=== PATIENT | female | born 1960 | race Caucasian/White ===

== ENCOUNTER 2017-08-16 06:54 | Day surgery (SDC) | payer OTHER ==
[2017-08-16] VITALS (11 sets, daily range): BP systolic 113–132; BP diastolic 58–75
[~2017-08-16] VITALS: Ht 160 cm; Wt 56.7 kg
[~2017-08-16 06:54] MED LIST: HYDR1TAB PO; LISI20TA PO; NAPR1TAB21 PO; OMG1KC PO; ONDN4T PO; SIMV40TA4 PO
[2017-08-16 07:50] LABS: MEAN PLATELET VOLUME 9.1 FL (7.4-10.4); RED BLOOD COUNT 4.22 10^6/uL (4.35-5.85); RED CELL DISTRIBUTION WIDTH 13.8 % (10.0-14.5); WHITE BLOOD COUNT 8.1 10^3/uL (4.3-11.0)
[2017-08-16] MEDS ORDERED: LIDOCAINE 1% INJ 20 ML (XYLOCAINE) VIAL INJ ONE (08:00)
[2017-08-16 08:02] LABS: INR 1.2 (0.8-1.4); PROTHROMBIN TIME PATIENT 15.2 SEC (12.2-14.7)
[2017-08-16] MEDS ORDERED: fentaNYL INJECTION 100 MCG/2 ML AMP ONE (08:11)
[2017-08-16] MEDS ORDERED: LIDOCAINE 1% INJ 50 ML (XYLOCAINE) VIAL ONE (08:11)
[2017-08-16] MEDS ORDERED: HYDROcodone/APAP 5 MG/325 MG (LORTAB) TAB PO PRN (09:15)
--- NOTE | 2017-08-16 09:16 | Pre-Procedure Progress Note ---
Pre-Procedure Progress Note H&P Reviewed The H&P was reviewed, patient examined and no changes noted. Date H&P Reviewed: Aug 16, 2017 Time H&P Reviewed: 08:30 Pre-Procedure Diagnosis: right lung nodule MYCHAL LA MD Aug 16, 2017 09:16
[2017-08-16] MEDS ORDERED: fentaNYL INJECTION 100 MCG/2 ML AMP IVP NR (09:34)
--- OUTSIDE RECORDS SUMMARY | 2017-08-16 10:28 | XMS REPORT | Continuity of Care Document ---
Author Author [facility] Organization [facility] Address Unknown Phone Unavailable Allergies Active Description Code Type Severity Reaction Onset Reported/Identified Relationship to Patient Clinical Status Yes No Known Drug Allergies [id number] Drug Allergy Unknown N/A 07/22/2012 Medications There is no data. Problems Date Dx Coded Attending Type Code Diagnosis Diagnosed By 07/25/2012 Ot 574.10 CHOLELITH W CHOLECYS NEC 06/03/2015 Ot 793.81 06/03/2015 Ot 729.5 06/03/2015 Ot 729.81 08/08/2017 Ot 574.20 CHOLELITHIASIS NOS 08/08/2017 Ot 789.00 ABDOMINAL PAIN, UNSPECIFIED SITE 08/08/2017 Ot 789.1 HEPATOMEGALY 08/08/2017 Ot 401.9 HYPERTENSION NOS 08/08/2017 Ot 574.20 CHOLELITHIASIS NOS 08/08/2017 Ot 786.2 COUGH 08/08/2017 Ot V72.63 PRE- PROCEDURAL LABORATORY EXAMINATION 08/08/2017 Ot V72.81 EXAM-PRE- OPERATIVE CARDIOVASCULAR 08/08/2017 Ot V72.83 EXAM PRE- OPERATIVE NEC 08/08/2017 Ot V74.8 SCREEN- BACTERIAL DIS NEC 08/08/2017 MAXIMUS VILLAVICENCIO Ot V76.12 OTH SCREEN MAMMO-MALIGN NEOPLASM OF MAT 08/10/2017 Ot 574.20 CHOLELITHIASIS NOS 08/10/2017 Ot 789.00 ABDOMINAL PAIN, UNSPECIFIED SITE 08/10/2017 Ot 789.1 HEPATOMEGALY 08/10/2017 Ot 401.9 HYPERTENSION NOS 08/10/2017 Ot 574.20 CHOLELITHIASIS NOS 08/10/2017 Ot 786.2 COUGH 08/10/2017 Ot V72.63 PRE- PROCEDURAL LABORATORY EXAMINATION 08/10/2017 Ot V72.81 EXAM-PRE- OPERATIVE CARDIOVASCULAR 08/10/2017 Ot V72.83 EXAM PRE- OPERATIVE NEC 08/10/2017 Ot V74.8 SCREEN- BACTERIAL DIS NEC 08/10/2017 VILLAVICENCIO, MAXIMUS M 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 [employer]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 Ot V76.12 OTH SCREEN MAMMO-MALIGN NEOPLASM OF AMT 08/15/2017 TAMIR FATIMA MD Ot C50.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 08/15/2017 TAMIR FATIMA MD Ot C64.2 MALIGNANT NEOPLASM OF LEFT KIDNEY, EXCEP 08/15/2017 TAMIR FATIMA MD Ot C77.3 SEC AND UNSP MALIG NEOPLASM OF AXILLA AN 08/15/2017 TAMIR FATIMA MD Ot E04.1 NONTOXIC SINGLE THYROID NODULE 08/15/2017 TAMIR FATIMA MD Ot F17.210 NICOTINE DEPENDENCE, CIGARETTES, UNCOMPL 08/15/2017 TAMIR FATIMA MD Ot N83.201 UNSPECIFIED OVARIAN CYST, RIGHT SIDE 08/15/2017 TAMIR FATIMA MD Ot R91.8 OTHER NONSPECIFIC ABNORMAL FINDING OF SHAKILA 08/15/2017 TAMIR FATIMA MD Ot Z17.0 ESTROGEN RECEPTOR POSITIVE STATUS [ER+] 08/15/2017 TAMIR FATIMA MD, Ot Z79.899 OTHER IMAGERY ANALYST (CURRENT) DRUG THERAPY 08/15/2017 Ot 574.20 CHOLELITHIASIS NOS 08/15/2017 Ot 789.00 ABDOMINAL PAIN, UNSPECIFIED SITE 08/15/2017 Ot 789.1 HEPATOMEGALY 08/15/2017 Ot 401.9 HYPERTENSION NOS 08/15/2017 Ot 574.20 CHOLELITHIASIS NOS 08/15/2017 Ot 786.2 COUGH 08/15/2017 Ot V72.63 PRE- PROCEDURAL LABORATORY EXAMINATION 08/15/2017 Ot V72.81 EXAM-PRE- OPERATIVE CARDIOVASCULAR 08/15/2017 Ot V72.83 EXAM PRE- OPERATIVE NEC 08/15/2017 Ot V74.8 SCREEN- BACTERIAL DIS NEC 08/15/2017 VILLAVICENCIOMAXIMUS M POWER [employer] PLANT OPERATOR Ot V76.12 OTH SCREEN MAMMO-MALIGN NEOPLASM OF MAT 08/15/2017 TAMIR FATIMA MD Ot C50.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 08/15/2017 TAMIR FATIMA MD Ot C64.2 MALIGNANT NEOPLASM OF LEFT KIDNEY, EXCEP 08/15/2017 TAMIR FATIMA MD Ot C77.3 SEC AND UNSP MALIG NEOPLASM OF AXILLA AN 08/15/2017 TAMIR FATIMA MD Ot E04.1 NONTOXIC SINGLE THYROID NODULE 08/15/2017 TAMIR FATIMA MD, Ot F17.210 NICOTINE DEPENDENCE, CIGARETTES, UNCOMPL 08/15/2017 TAMIR FATIMA MD, Ot N83.201 UNSPECIFIED OVARIAN CYST, RIGHT SIDE 08/15/2017 TAMIR FATIMA MD, Ot R91.8 OTHER NONSPECIFIC ABNORMAL FINDING OF SHAKILA 08/15/2017 TAMIR FATIMA MD, Ot Z17.0 ESTROGEN RECEPTOR POSITIVE STATUS [ER+] 08/15/2017 TAMIR FATIMA MD, Ot Z79.899 OTHER PENITENTIARY (CURRENT) DRUG THERAPY Procedures There is no data. Results Test Result Range Automated blood complete blood count (hemogram) panel - 08/16/17 07:45 Blood leukocytes automated count (number/volume) 8.1 10*3/uL 4.3-11.0 Blood erythrocytes automated count (number/volume) 4.22 10*6/uL 4.35-5.85 Venous blood hemoglobin measurement (mass/volume) 11.1 g/dL 11.5-16.0 Blood hematocrit (volume fraction) 35 % 35-52 Automated erythrocyte mean corpuscular volume 83 [foz_us] 80-99 Automated erythrocyte mean corpuscular hemoglobin (mass per erythrocyte) 26 pg 25-34 Automated erythrocyte mean corpuscular hemoglobin concentration measurement ( mass/volume) 32 g/dL 32-36 Automated erythrocyte distribution width ratio 13.8 % 10.0-14.5 Automated blood platelet count (count/volume) 474 10*3/uL 130-400 Automated blood platelet mean volume measurement 9.1 [foz_us] 7.4-10.4 PT panel in platelet poor plasma by coagulation assay - 08/16/17 07:45 Prothrombin time (PT) in platelet poor plasma by coagulation assay 15.2 s 12.2-14.7 INR in platelet poor plasma or blood by coagulation assay 1.2 0.8-1.4 Activated partial thromboplastin time (aPTT) in platelet poor plasma bycoagulation assay - 08/16/17 07:45 Activated partial thromboplastin time (aPTT) in platelet poor plasma bycoagulation assay 34 s 24-35 Encounters ACCT No. Visit Date/Time Discharge Status Pt. Type Provider Facility Loc./Unit Complaint [id number] 08/10/2017 08:06:00 08/10/2017 23:59:59 CLS Outpatient TAMIR FATIMA MD [facility] ONC [id number] 02/25/2013 08:52:00 02/25/2013 23:59:59 CLS Outpatient MAXIMUS VILLAVICENCIO [facility] RAD PREVENTATIVE SCREENING [id number] 08/16/2017 08:15:00 PEN Preadmit TAMIR FATIMA MD [facility] RAD LUNG MASS [id number] 07/25/2012 09:10:00 Document Registration [id number] 07/22/2012 08:42:00 Document Registration [id number] 07/04/2012 08:39:00 Document Registration [id number] 07/18/2011 09:39:00 Document Registration [id number] 02/02/2010 09:09:00 Document Registration
--- NOTE | 2017-08-16 11:28 | Diagnostic Imaging Report ---
EXAMINATION: CT-guided biopsy-right lower lobe mass. INDICATION: Right lower lobe mass. Current history and physical and other medical records are reviewed prior to the procedure. CONSENT: Informed consent was obtained from the patient. The risks, benefits, potential complications and alternatives were reviewed and all questions answered to the patient's satisfaction. The patient's vital signs, cardiac rhythm, and pulse oximetry were observed throughout the procedure by qualified nursing personnel. Sedation/medications: none. FINDINGS: Right lower lobe mass. It is about 2 CM in size, similar to the previous exam. The other nodules in the right lung base appear significantly larger. PROCEDURE: After maximal sterile barrier technique preparation and draping, 1% lidocaine was utilized for local anesthesia. With the patient in right side down position, and via posterior intercostal approach, a 19-gauge guide needle is introduced into the right lower lobe mass under CT scan guidance. After confirming adequate positioning with saved CT images, multiple 20 gauge core biopsy specimens were obtained. Autologous blood patch injected in the tract as the guide needle was removed The patient tolerated the procedure well with no immediate complications. IMPRESSION: Successful CT-guided biopsy of right lower lobe mass. There is incidental note during the biopsy scans in the right lung base demonstrating interval significant enlargement when compared to 06/22/17. Dictated by: Dictated on workstation # [id number]
--- NOTE | 2017-08-17 07:54 | Diagnostic Imaging Report ---
Portable upright expiratory view of the chest. INDICATION: Lung masses. FINDINGS: Right perihilar lung mass is seen with surrounding postbiopsy changes. No pneumothorax. The heart size is normal. No pleural effusion. The mediastinum and hanh appear unremarkable. IMPRESSION: Right perihilar mass with postbiopsy changes. No pneumothorax. Dictated by: Dictated on workstation # [id number]
== END 2017-08-16 13:28 | disposition home or self-care (01) ==
LOC: 4TH 06:54 → RAD 06:54
PROVIDERS: ATTEND Internal Medicine Hematology & Oncology
DX: R91.8 Other nonspecific abnormal finding of lung field (principal)
CPT/HCPCS: 36415; 71035; 77012; 85027; 85610; 85730

== ENCOUNTER → 2017-09-24 | Outpatient (CLI) | payer OTHER ==
[~2017-09-24] MED LIST changes: +CATHETER FLUSH 10 ML SYR IV PRN; +IOHEXOL 350 MG/ML 100 ML (OMNIPAQUE 350) VIAL IV ONE
--- NOTE | 2017-09-24 14:28 | Diagnostic Imaging Report ---
PROCEDURE: CT chest with contrast only. TECHNIQUE: Multiple contiguous axial images were obtained through the chest after administration of intravenous contrast. INDICATION: Non-small cell lung carcinoma. Comparison is made with prior CT chest from 06/22/2017. FINDINGS: There is a low-density nodule in the right lobe of the thyroid gland, stable when compared with prior CT. No axillary lymphadenopathy is identified. No definite hilar or mediastinal lymphadenopathy is detected. No pericardial or pleural fluid is detected. There has been significant increase in size and number of multiple bilateral pulmonary nodules. The dominant spiculated mass in the superior segment of the right lower lobe measures 2.6 cm transverse x 2.3 cm on prior. There are now nodules identified throughout bilateral upper lobes and bilateral lower lobes. A nodule in the medial aspect of the right lower lobe, image 43 measures 2.0 cm compared with 0.8 cm. A nodule more inferiorly in the medial right lower lobe measures 1.6 cm compared with 0.6 cm. A nodule in the posterior left lower lobe in the sulcus measures 1.4 cm compared with 0.6 cm. Imaging through the upper abdomen partially demonstrates the necrotic mass arising from the left kidney. This was not entirely included on this exam. IMPRESSION: Significant progression of diffuse bilateral pulmonary metastatic disease when compared with outside CT from 06/22/2017. There has been increase in size and number of bilateral pulmonary masses. No definite thoracic lymphadenopathy or chest effusion is identified. Dictated by: Dictated on workstation # [id number]
== END ==
LOC: RAD 13:33
PROVIDERS: ATTEND Internal Medicine Hematology & Oncology
DX: C34.91 Malignant neoplasm of unspecified part of right bronchus or lung (principal); C34.92 Malignant neoplasm of unspecified part of left bronchus or lung; C79.9 Secondary malignant neoplasm of unspecified site
CPT/HCPCS: 71260

== ENCOUNTER 2017-10-12 08:41 | Outpatient (RCR) | payer OTHER ==
[2017-09-21 10:18] LABS: BASOPHILS % (AUTO) 0 % (0-10); EOSINOPHILS % (AUTO) 0 % (0-10); HEMATOCRIT 30 % (35-52); HEMOGLOBIN 9.5 G/DL (11.5-16.0); LYMPHOCYTES # (AUTO) 2.9 X 10^3 (1.0-4.0); LYMPHOCYTES % (AUTO) 38 % (12-44); MEAN CORPUSCULAR HEMOGLOBIN 24 PG (25-34); MEAN CORPUSCULAR HGB CONC 32 G/DL (32-36); MEAN CORPUSCULAR VOLUME 77 FL (80-99); MEAN PLATELET VOLUME 9.2 FL (7.4-10.4); MONOCYTES # (AUTO) 0.7 X 10^3 (0.0-1.0); MONOCYTES % (AUTO) 9 % (0-12); NEUTROPHILS # (AUTO) 4.1 X 10^3 (1.8-7.8); NEUTROPHILS % (AUTO) 53 % (42-75); PLATELET COUNT 550 10^3/uL (130-400); RED BLOOD COUNT 3.89 10^6/uL (4.35-5.85); WHITE BLOOD COUNT 7.7 10^3/uL (4.3-11.0)
[2017-09-21 10:27] LABS: ALANINE AMINOTRANSFERASE 21 U/L (0-55); ALBUMIN 3.2 GM/DL (3.2-4.5); ALKALINE PHOSPHATASE 291 U/L (40-136); BILIRUBIN,TOTAL 0.3 MG/DL (0.1-1.0); BUN/CREATININE RATIO 12; CALCIUM 9.9 MG/DL (8.5-10.1); CARBON DIOXIDE 22 MMOL/L (21-32); CHLORIDE 100 MMOL/L (98-107); CREATININE SERUM 0.69 MG/DL (0.60-1.30); GFR ESTIMATED > 60; GLUCOSE 114 MG/DL (70-105); POTASSIUM 4.2 MMOL/L (3.6-5.0); SODIUM 134 MMOL/L (135-145); TOTAL PROTEIN 7.7 GM/DL (6.4-8.2)
[~2017-10-12 08:41] MED LIST changes: -CATHETER FLUSH 10 ML SYR IV PRN; -IOHEXOL 350 MG/ML 100 ML (OMNIPAQUE 350) VIAL IV ONE
[2017-10-12 09:08] LABS: BASOPHILS % (AUTO) 1 % (0-10); EOSINOPHILS # (AUTO) 0.1 10^3/uL (0.0-0.3); EOSINOPHILS % (AUTO) 1 % (0-10); HEMATOCRIT 27 % (35-52); HEMOGLOBIN 8.3 G/DL (11.5-16.0); LYMPHOCYTES # (AUTO) 2.6 X 10^3 (1.0-4.0); LYMPHOCYTES % (AUTO) 34 % (12-44); MEAN CORPUSCULAR HEMOGLOBIN 23 PG (25-34); MEAN CORPUSCULAR HGB CONC 31 G/DL (32-36); MEAN CORPUSCULAR VOLUME 75 FL (80-99); MEAN PLATELET VOLUME 8.3 FL (7.4-10.4); MONOCYTES # (AUTO) 0.9 X 10^3 (0.0-1.0); MONOCYTES % (AUTO) 11 % (0-12); NEUTROPHILS # (AUTO) 4.1 X 10^3 (1.8-7.8); NEUTROPHILS % (AUTO) 53 % (42-75); PLATELET COUNT 648 10^3/uL (130-400); RED CELL DISTRIBUTION WIDTH 16.3 % (10.0-14.5); WHITE BLOOD COUNT 7.6 10^3/uL (4.3-11.0)
[2017-10-12 09:32] LABS: ALANINE AMINOTRANSFERASE 20 U/L (0-55); ALBUMIN 3.3 GM/DL (3.2-4.5); ALKALINE PHOSPHATASE 271 U/L (40-136); BILIRUBIN,TOTAL 0.4 MG/DL (0.1-1.0); BUN/CREATININE RATIO 11; CARBON DIOXIDE 24 MMOL/L (21-32); CHLORIDE 102 MMOL/L (98-107); CREATININE SERUM 0.71 MG/DL (0.60-1.30); GFR ESTIMATED > 60; GLUCOSE 102 MG/DL (70-105); POTASSIUM 4.5 MMOL/L (3.6-5.0); SODIUM 137 MMOL/L (135-145); TOTAL PROTEIN 7.8 GM/DL (6.4-8.2)
== END 2017-11-08 | disposition home or self-care (01) ==
LOC: ONC 08:41
PROVIDERS: ATTEND Internal Medicine Hematology & Oncology
DX: C50.412 Malignant neoplasm of upper-outer quadrant of left female breast (principal); C64.1 Malignant neoplasm of right kidney, except renal pelvis; C77.3 Secondary and unspecified malignant neoplasm of axilla and upper limb lymph nodes; C34.31 Malignant neoplasm of lower lobe, right bronchus or lung; C78.01 Secondary malignant neoplasm of right lung; C78.02 Secondary malignant neoplasm of left lung; E04.1 Nontoxic single thyroid nodule; D64.9 Anemia, unspecified; N83.201 Unspecified ovarian cyst, right side; F17.210 Nicotine dependence, cigarettes, uncomplicated; Z17.0 Estrogen receptor positive status [ER+]; Z79.811 Long term (current) use of aromatase inhibitors; Z79.899 Other long term (current) drug therapy
CPT/HCPCS: 36415; 80053; 82728; 83540; 83615; 85025; 99213; 99214

== ENCOUNTER → 2017-11-21 | Outpatient (CLI) | payer OTHER ==
--- NOTE | 2017-11-21 09:58 | Diagnostic Imaging Report ---
PROCEDURE: CT chest, abdomen, and pelvis without contrast. TECHNIQUE: Multiple contiguous axial images were obtained through the chest, abdomen, and pelvis without the use of intravenous contrast. INDICATION: Status post left nephrectomy three weeks ago. Patient has history of primary breast carcinoma with metastases. Comparison is made with recent CT chest from 09/24/[address] abdomen and pelvis performed on 06/22/2017. CT CHEST: No axillary lymphadenopathy is detected. Hilar and mediastinal evaluation is limited due to absence of intravenous contrast, however, no significant abnormality is identified. No pericardial or pleural fluid is identified. There has been significant increase in size and number of numerous bilateral pulmonary masses when compared with examination from 09/24/2017. Mass in the left apex measures 15 mm compared with 7 mm. A mass in the right upper lobe at the level of aortic arch measures 12 mm compared to 7 mm. The spiculated mass in the superior segment right lower lobe is actually stable to slightly smaller measuring 24 mm compared with 26 mm. Mass in the medial aspect of the right lower lobe image 43 is 27 mm compared with 20 mm. Mass along the left side of the aortic arch at the level of the left atrium measures 29 mm compared to 16 mm. IMPRESSION: Significant increase in size and number of numerous bilateral circumscribed pulmonary masses when compared with exam from 09/24/2017 consistent with worsening metastatic disease. A spiculated mass in the superior segment right lower lobe is stable. CT ABDOMEN AND PELVIS: No discrete liver mass is identified. The gallbladder is surgically absent. The pancreas and spleen are unremarkable. No adrenal mass is seen. The left kidney is surgically absent. Right kidney is unremarkable. Aorta is calcified but nonaneurysmal. 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 Small and large bowel loops are normal caliber. There is no ascites. A right adnexal cyst is stable. No definite inguinal or iliac lymphadenopathy is detected. Bony structures are unremarkable apart from degenerative changes. IMPRESSION: Stable CT of the abdomen and pelvis when compared to outside study from 06/22/2017. No definite findings to suggest metastatic disease are identified. Dictated by: Dictated on workstation # [id number]
== END ==
LOC: RAD 07:45
PROVIDERS: ATTEND Internal Medicine Hematology & Oncology
DX: C79.9 Secondary malignant neoplasm of unspecified site (principal); R91.8 Other nonspecific abnormal finding of lung field; I70.0 Atherosclerosis of aorta; N83.8 Other noninflammatory disorders of ovary, fallopian tube and broad ligament; M89.8X9 Other specified disorders of bone, unspecified site; Z90.49 Acquired absence of other specified parts of digestive tract; Z90.5 Acquired absence of kidney; Z95.828 Presence of other vascular implants and grafts; Z85.3 Personal history of malignant neoplasm of breast; Z85.528 Personal history of other malignant neoplasm of kidney
CPT/HCPCS: 71250; 74176

== ENCOUNTER 2018-02-01 04:02 | Inpatient (IN) | payer OTHER ==
[~2018-02-01] VITALS: Ht 160 cm; Wt 53.1 kg
[2018-02-01 04:24] LABS: BASOPHILS % (AUTO) 0 % (0-10); EOSINOPHILS % (AUTO) 1 % (0-10); HEMATOCRIT 32 % (35-52); HEMOGLOBIN 10.3 G/DL (11.5-16.0); LYMPHOCYTES # (AUTO) 1.7 X 10^3 (1.0-4.0); LYMPHOCYTES % (AUTO) 36 % (12-44); MEAN CORPUSCULAR HEMOGLOBIN 25 PG (25-34); MEAN CORPUSCULAR HGB CONC 32 G/DL (32-36); MEAN CORPUSCULAR VOLUME 76 FL (80-99); MONOCYTES # (AUTO) 0.7 X 10^3 (0.0-1.0); MONOCYTES % (AUTO) 14 % (0-12); NEUTROPHILS # (AUTO) 2.3 X 10^3 (1.8-7.8); NEUTROPHILS % (AUTO) 49 % (42-75); PLATELET COUNT 416 10^3/uL (130-400); RED BLOOD COUNT 4.18 10^6/uL (4.35-5.85); RED CELL DISTRIBUTION WIDTH 22.5 % (10.0-14.5); WHITE BLOOD COUNT 4.6 10^3/uL (4.3-11.0)
--- NOTE | 2018-02-01 04:26 | ED Neurological Problem ---
General Chief Complaint: Neurological Problems Stated Complaint: SEIZURE LIKE ACTIVITY Source: patient, EMS History of Present Illness Date Seen by Provider: Feb 01, 2018 Time Seen by Provider: 04:03 Initial Comments PT ARRIVES VIA [facility] FROM HOME EMS WAS CALLED FOR POSSIBLE SEIZURE ACTIVITY PT WAS ASLEEP IN BED, AND HEARD HER SNORING, AND SHE WOULD NOT ROUSE WHEN HE TRIED TO WAKE HER UP, BUT HER EYES WERE OPEN THE WHOLE TIME PT STATES SHE WAS AWARE OF EVERYTHING AND KNOWS HE WAS TALKING TO HER, BUT SHE COULD NOT RESPOND STATES HER RIGHT HAND WAS CLENCHED UP AND SHE COULD NOT UN-CLENCH IT, BUT HAS RESOLVED NOW STATES "IT FELT LIKE MY WHOLE BODY WAS SEIZED UP ALL OVER AND I COULDN'T MOVE AND I WAS SHAKING ALL OVER" "I COULDN'T BLINK OR NOTHING" ALL SYMPTOMS HAVE RESOLVED--IS UNSURE HOW LONG THIS LASTED, BUT BEGAN AROUND 214 NO INCONTINENCE NO CONFUSION NO HISTORY OF SIMILAR NO HEADACHE NO VISION CHANGES NO PAIN ANYWHERE NO CHEST PAIN OR SHORTNESS OF BREATH, BUT STATES IT FELT LIKE EVERYTHING CLENCHED UP AND SHE COULDN'T GET A BREATH IN NO RECENT ILLNESS OR FEVER PT WAS DX WITH BREAST CANCER 03/2017, AND HAD LEFT LUMPECTOMY AND LYMPH NODES REMOVED 05/2017 PT WAS DX WITH LEFT RENAL CANCER AND HAD LEFT NEPHRECTOMY 03/2018 PT HAS ALSO BEEN DX WITH BILATERAL LUNG CANCER--SUSPECTED METS PT HAS COMPLETED RADIATION TREATMENTS AND IS NOW ON ORAL CHEMO PT SEES DR. FATIMA PT DID SMOKE 1 1/2 PPD, STILL SMOKES BUT NOT MUCH PT USED TO DRINK BEER, BUT HAS NOT DRANK IN A LONG TIME NO HISTORY OF DRUG USE PCP: DR. ZAMORA--[facility] [place] ONCOLOGY: DR. FATIMA Allergies and Home Medications Allergies Coded Allergies: temsirolimus (Verified Allergy, Severe, RASH, 11/28/17) Home Medications Hydrocodone Bit/Acetaminophen 1 Each Tablet, 1-2 EACH PO Q4-6HR PRN, (Reported) take 1-2 every 4-6 hrs. as needed for pain Lisinopril 20 Mg Tablet, 20 MG PO HS, (Reported) Naproxen/Esomeprazole Mag 1 Each Tbmp.12hr, 1 EACH PO BID, (Reported) [place] 3 Polyunsat Fatty Acids 1,000 Mg Cap, 1,000 MG PO HS, (Reported) Ondansetron Hcl 4 Mg Tab, 1 TAB PO Q6H PRN, (Reported) Simvastatin 40 Mg Tablet, 40 MG PO HS, (Reported) Patient Home Medication List Home Medication List Reviewed: Yes Review of Systems Constitutional: No chills, No diaphoresis, No dizziness, No fever, No malaise, No weakness Eyes: No Symptoms Reported Ears, Nose, Mouth, Throat: no symptoms reported Respiratory: no symptoms reported; No cough, No short of breath Cardiovascular: no symptoms reported; No chest pain Gastrointestinal: No abdominal pain, No constipation, No diarrhea; nausea ( WITH CHEMO MEDICATIONS); No vomiting Genitourinary: no symptoms reported Musculoskeletal: no symptoms reported Skin: no symptoms reported Psychiatric/Neurological: See HPI; Denies Cognitive Dysfunction, Denies Headache, Denies Numbness, Denies Tingling Endocrine: No Symptoms Reported Hematologic/Lymphatic: See HPI Past Asowxdu-Nnfnvb-Hetawg Hx Patient Social History Alcohol Use: Past History (BEER, NONE FOR "LONG TIME" PER PT) Recreational Drug Use: No Smoking Status: Current Everyday Smoker (1 /2 PPD) Type Used: Cigarettes Recent Foreign Travel: No Contact w/Someone Who Travel: No Recent Hopitalizations: No Physical Abuse: No Sexual Abuse: No Mistreated: No Fear: No Immunizations Up To Date Date of Influenza Vaccine: Apr 27, 2012 Past Medical History Surgeries: Yes (LEFT NEPHRECTOMY 10/2017; LEFT BREAST LUMPECTOMY W/ LYMPH NODE REMOVAL 05/2017) Breast, Gallbladder, Nephrectomy Respiratory: Yes (BILATERAL LUNG CANCER==SUSPECT METASTATIC DISEASE) Cardiac: Yes Hypertension Neurological: No Reproductive Disorders: No 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 Genitourinary: Yes (S/P LEFT NEPHRECTOMY FOR CANCER 10/2017) Gastrointestinal: Yes Gastroesophageal Reflux Musculoskeletal: No Endocrine: No HEENT: No Cancer: Yes (LEFT BREAST-DX 03/2017; LEFT RENAL W/ METS TO BILATERAL LUNGS- DX 10/2017) Lung, Breast, Kidney Did You Recieve Any Treatments: Yes (LEFT BREAST LUMPECTOMY WITH LYMPH NODE REMOVAL 05/2017; LEFT NEPHRECTOMY 10/2017; COMPLETED RADIATION AND CURRENTLY ON ORAL CHEMO OF 02/01/18) What Type of Treatment Did You: Chemotherapy, Radiation, Surgical Intervention Psychosocial: No Nursing Suicide Risk Score: 0 Integumentary: No Blood Disorders: No Physical Exam Vital Signs Vital Signs - First Documented 02/01/18 04:05 Temp 99.2 Pulse 108 Resp 16 B/P (MAP) 107/80 (89) Pulse Ox 94 O2 Delivery Room Air Capillary Refill : General Appearance: no apparent distress, cachetic, thin HEENT: PERRL/EOMI, normal ENT inspection Neck: non-tender, full range of motion, supple, normal inspection Respiratory: normal breath sounds, no respiratory distress, no accessory muscle use Cardiovascular: no edema, no JVD, no murmur, tachycardia Gastrointestinal: normal bowel sounds, non tender, soft Back: normal inspection, no CVA tenderness Extremities: normal range of motion, non-tender, normal inspection, no pedal edema, no calf tenderness, normal capillary refill Neurologic/Psychiatric: food safety officer II-XII nml as tested, no motor/sensory deficits, alert, normal mood/affect, oriented x 3 Crainal Nerves: normal hearing, normal speech, PERRL Motor/Sensory: no motor deficit, no sensory deficit, no pronator drift Skin: normal color, warm/dry Progress/Results/Core Measures Results/Orders Lab Results Laboratory Tests Test 02/01/18 04:08 02/01/18 05:01 Range/Units White Blood Count 4.6 4.3-11.0 10^3/uL Red Blood Count 4.18 L 4.35-5.85 10^6/uL Hemoglobin 10.3 L 11.5-16.0 G/DL Hematocrit 32 L 35-52 % Mean Corpuscular Volume 76 L 80-99 FL Mean Corpuscular Hemoglobin 25 25-34 PG Mean Corpuscular Hemoglobin Concent 32 32-36 G/DL Red Cell Distribution Width 22.5 H 10.0-14.5 % Platelet Count 416 H 130-400 10^3/uL Mean Platelet Volume 9.0 7.4-10.4 FL Neutrophils (%) (Auto) 49 42-75 % Lymphocytes (%) (Auto) 36 12-44 % Monocytes (%) (Auto) 14 H 0-12 % Eosinophils (%) (Auto) 1 0-10 % Basophils (%) (Auto) 0 0-10 % Neutrophils # (Auto) 2.3 1.8-7.8 X 10^3 Lymphocytes # (Auto) 1.7 1.0-4.0 X 10^3 Monocytes # (Auto) 0.7 0.0-1.0 X 10^3 Eosinophils # (Auto) 0.0 0.0-0.3 10^3/uL Basophils # (Auto) 0.0 0.0-0.1 10^3/uL Prothrombin Time 15.8 H 12.2-14.7 SEC INR Comment 1.3 0.8-1.4 Activated Partial Thromboplast Time 34 24-35 SEC Sodium Level 133 L 135-145 MMOL/L Potassium Level 4.3 3.6-5.0 MMOL/L Chloride Level 101 98-107 MMOL/L Carbon Dioxide Level 20 L 21-32 MMOL/L Anion Gap 12 5-14 MMOL/L Blood Urea Nitrogen 13 7-18 MG/DL Creatinine 0.85 0.60-1.30 MG/DL Estimat Glomerular Filtration Rate > 60 BUN/Creatinine Ratio 15 Glucose Level 119 H 70-105 MG/DL Calcium Level 9.2 8.5-10.1 MG/DL Magnesium Level 1.6 L 1.8-2.4 MG/DL Total Bilirubin 0.5 0.1-1.0 MG/DL Aspartate Amino Transf (AST/SGOT) 17 5-34 U/L Alanine Aminotransferase (ALT/SGPT) 19 0-55 U/L Alkaline Phosphatase 136 40-136 U/L Total Creatine Kinase 22 L 29-168 U/L Creatine Kinase MB 0.4 <6.6 NG/ML Troponin I < 0.30 <0.30 NG/ML Total Protein 6.7 6.4-8.2 GM/DL Albumin 2.8 L 3.2-4.5 GM/DL TSH [facility] Testing 3.63 0.35-4.94 UIU/ML Urine Color YELLOW Urine Clarity CLEAR Urine pH 6 5-9 Urine Specific [place] 1.020 1.016-1.022 Urine Protein 2+ H NEGATIVE Urine Glucose (UA) NEGATIVE NEGATIVE Urine Ketones NEGATIVE NEGATIVE Urine Nitrite NEGATIVE NEGATIVE Urine Bilirubin NEGATIVE NEGATIVE Urine Urobilinogen 1 NORMAL MG/DL Urine Leukocyte Esterase 1+ H NEGATIVE Urine RBC (Auto) 4+ H NEGATIVE Urine RBC 2-5 H /HPF Urine WBC 0-2 /HPF Urine Squamous Epithelial Cells 0-2 /HPF Urine Crystals NONE /LPF Urine Bacteria TRACE /HPF Urine Casts PRESENT /LPF Urine Hyaline Casts 0-2 H /LPF Urine Granular Casts 0-2 H /LPF Urine Mucus NEGATIVE /LPF Urine Culture Indicated NO My Orders Orders - EMELI,EDGARDO K DO Saline Lock/Iv-Start (02/01/18 04:15) Ekg Tracing (02/01/18 04:15) Monitor-Rhythm Ecg Trace Only (02/01/18 04:15) Ct Head Wo-R/O Stroke (02/01/18 04:15) Cbc With Automated Diff (02/01/18 04:15) Comprehensive Metabolic Panel (02/01/18 04:15) Creatine Kinase (02/01/18 04:15) Creatine Kinase Mb (02/01/18 04:15) Magnesium (02/01/18 04:15) Protime With Inr (02/01/18 04:15) Partial Thromboplastin Time (02/01/18 04:15) Thyroid Analyzer (02/01/18 04:15) Troponin I (02/01/18 04:15) Ua Culture If Indicated (02/01/18 04:15) Chest 1 View, Ap/Pa Only (02/01/18 04:15) Dexamethasone Pf Injection (Decadron Pf (02/01/18 05:30) Levetiracetam Injection (Keppra Injectio (02/01/18 05:30) Medications Given in ED Current Medications Medications Dose Ordered Sig/Moises Route Start Time Stop Time Status Last Admin Dose Admin Levetiracetam 500 mg/Sodium Chloride 55 ml @ 100 mls/hr ONCE ONCE IV 02/01/18 05:30 02/01/18 06:02 UNV 02/01/18 05:43 100 MLS/HR Vital Signs/I&O 02/01/18 04:05 Temp 99.2 Pulse 108 Resp 16 B/P (MAP) 107/80 (89) Pulse Ox 94 O2 Delivery Room Air Progress Progress Note : Progress Note UNEVENTFUL ER STAY NO SYMPTOMS IN ER Initial ECG Impression Date: Feb 01, 2018 Initial ECG Impression Time: 04:18 Initial ECG Rate: 103 Initial ECG Rhythm: S.Tach Initial ECG Impression: Nonspecific Changes (IVCD/RBBB) Initial ECG Comparisson: No Previous ECG Available Diagnostic Imaging Comments CXR--MULTIPLE PULMONARY NODULES BILATERALLY, PENDING RADIOLOGIST REVIEW CT HEAD--MULTIPLE FOCI OF EDEMA, SUSPICIOUS FOR METASTATIC DISEASE. NO INTRACRANIAL BLEED--PER [facility] RADIOLOGIST VIA PHONE AT [phone] AND VIA FAX @ [phone] Reviewed: Reviewed by Me Departure Communication (Admissions) [id number]--SPOKE WITH DR. MAN. ONCOLOGIST STUDENT MINISTRIES DIRECTOR. HE ADVISES TO GIVE DECADRON AND KEPPRA AND ADMIT TO HOSPITALIST AND DR. FATIMA CAN SEE PT TODAY IN HOSPITAL, AND CONSULT RADIATION ONCOLOGIST THIS AM. [id number]--SPOKE WITH DR. SRINIVASAN, HOSPITALIST, ACCEPTS PT FOR ADMIT Impression Primary Impression: NEW ONSET SEIZURE LIKE ACTIVITY Additional Impressions: NEW DIAGNOSIS OF BRAIN METS BREAST AND RENAL CANCER WITH KNOWN LUNG METS Hypomagnesemia Anemia Disposition: ADMITTED INPATIENT Condition: Stable Admissions Decision to Admit Reason: Admit from ER (General) Decision to Admit/Date: Feb 01, 2018 Time/Decision to Admit Time: 05:30 Departure-Patient Inst. Referrals: LORENZO ZAMORA MD (PCP/Family) Primary Care Physician EDGARDO SAINZ DO Feb 01, 2018 04:26
[2018-02-01 04:37] LABS: INR 1.3 (0.8-1.4); PROTHROMBIN TIME PATIENT 15.8 SEC (12.2-14.7)
[2018-02-01 04:39] LABS: ALANINE AMINOTRANSFERASE 19 U/L (0-55); ALBUMIN 2.8 GM/DL (3.2-4.5); ALKALINE PHOSPHATASE 136 U/L (40-136); BILIRUBIN,TOTAL 0.5 MG/DL (0.1-1.0); BUN/CREATININE RATIO 15; CALCIUM 9.2 MG/DL (8.5-10.1); CARBON DIOXIDE 20 MMOL/L (21-32); CHLORIDE 101 MMOL/L (98-107); CREATINE KINASE 22 U/L (29-168); CREATININE SERUM 0.85 MG/DL (0.60-1.30); GFR ESTIMATED > 60; GLUCOSE 119 MG/DL (70-105); MAGNESIUM 1.6 MG/DL (1.8-2.4); POTASSIUM 4.3 MMOL/L (3.6-5.0); SODIUM 133 MMOL/L (135-145); TOTAL PROTEIN 6.7 GM/DL (6.4-8.2)
[2018-02-01 04:58] LABS: CREATINE KINASE MB 0.4 NG/ML (<6.6); TSH (THYROID ANALYZER) 3.63 UIU/ML (0.35-4.94)
[2018-02-01 05:07] LABS: BILIRUBIN,URINE NEGATIVE (NEGATIVE); CLARITY,URINE CLEAR; COLOR,URINE YELLOW; GLUCOSE, URINE (UA) NEGATIVE (NEGATIVE); KETONES,URINE NEGATIVE (NEGATIVE); LEUKOCYTE ESTERASE ,URINE 1+ (NEGATIVE); NITRITE,URINE NEGATIVE (NEGATIVE); PH,URINE 6 (5-9); PROTEIN,URINE 2+ (NEGATIVE); UROBILINOGEN,URINE 1 MG/DL (NORMAL)
[2018-02-01] MEDS ORDERED: LEVETIRACETAM INJECTION 500 MG in NS (IVPB) 50 ML IV ONE (05:30)
[2018-02-01] MEDS ORDERED: DEXAMETHASONE PF 10 MG/ML (DECADRON) VIAL IV STA (05:30)
[2018-02-01 05:32] LABS: BACTERIA,URINE TRACE /HPF; GRANULAR CASTS,URINE 0-2 /LPF; HYALINE CASTS, URINE 0-2 /LPF; SQUAMOUS EPITHELIAL CELL,UR 0-2 /HPF; WBC,URINE 0-2 /HPF
[2018-02-01] MEDS ORDERED: NS (IVPB) 100 ML ONE (05:36)
[2018-02-01] MEDS ORDERED: LEVETIRACETAM 500 MG/5 ML (KEPPRA) VIAL IV ONE (05:36)
[2018-02-01] MEDS ORDERED: DEXAMETHASONE 10 MG/ML (DECADRON) 1 ML VIAL ONE (05:37)
[2018-02-01] MEDS ORDERED: ONDANSETRON 4 MG/2 ML (SDV) Z0FRAN IV PRN (06:30)
[2018-02-01] MEDS: 1/2 NS IV SOLUTION 1,000 ML IV SCH ×2 (06:36→17:07)
[2018-02-01 06:49] VITALS: BP 118/61
--- NOTE | 2018-02-01 08:02 | Diagnostic Imaging Report ---
INDICATION: Seizure, history of recent brain biopsy Noncontrast brain CT is performed. There is no prior study for comparison. There are multiple areas of vasogenic edema suspicious for underlying metastatic disease, including left frontal region, right parietal region, left occipital region, and left temporal region. There is no acute hemorrhage or midline shift or subdural or epidural collection. Calvarial windows are unremarkable. IMPRESSION: Multifocal areas of vasogenic edema are present which are likely due to metastatic disease. There is no hemorrhage or subdural or epidural collection. Consider MRI pre-and postcontrast for further evaluation of presumed metastatic lesions if clinically warranted. Dictated by: Dictated on workstation # [id number]
--- NOTE | 2018-02-01 08:13 | Diagnostic Imaging Report ---
Indication: Seizure activity, history of lung lesions. Frontal chest at obtained at 4:52 hours a.m. and compared to 10/04/2017. Heart is normal in size. Mediastinal silhouette is unremarkable. There are multiple pulmonary nodules in both lungs suspicious for metastatic disease. The nodules appear similar to the previous study. The area of infiltrate in the right lung base appears resolved. There is no pneumothorax or pleural fluid. Impression: Multiple pulmonary nodules present which are suspicious for metastatic disease. Previous infiltrate in the right base seen on 10/04/2017 is resolved. There is no pneumothorax or pleural fluid. Dictated by: Dictated on workstation # [id number]
[2018-02-01 08:53] VITALS: BP 109/59
[2018-02-01 10:04] VITALS: BP 120/76
--- NOTE | 2018-02-01 10:16 | Consultation ---
History of Present Illness History of Present Illness Patient Consulted On(harrison/time) 02/01/18 10:05 Date Seen by Provider: Feb 01, 2018 Time Seen by Provider: 10:06 History of Present Illness Ms. Lewis is a 57 yo female who was concurrently diagnosed with breast cancer, lung cancer and metastatic renal cell carcinoma. She is being treated with letrozole and pazopanib. She was transferred from her local ED and admitted here early this morning after being found to have a seizure-like episode last night by her boyfriend. Patient's eyes were open and she describes herself as being cognizant of the situation, her surroundings, and her significant other's speech, but she could not move or act. The episode lasted about 20 minutes and she felt generalized muscle soreness afterwards. This morning, patient feels some generalized weakness but feels well otherwise. She was able to walk to the bathroom by herself and eat without issues. Allergies and Home Medications Allergies Coded Allergies: temsirolimus (Verified Allergy, Severe, RASH, 11/28/17) Home Medications Acetaminophen 500 Mg Tablet, 500 MG PO Q4H PRN for PAIN-MILD, (Reported) Letrozole 2.5 Mg Tablet, 2.5 MG PO DAILY, (Reported) Lisinopril 20 Mg Tablet, 20 MG PO HS, (Reported) Lorazepam 0.5 Mg Tablet, 0.5 MG PO BID PRN for ANXIETY, (Reported) [place] 3 Polyunsat Fatty Acids 1,000 Mg Cap, 1,000 MG PO DAILY, (Reported) Ondansetron HCl 8 Mg Tablet, 8 MG PO TID PRN for NAUSEA/VOMITING-1ST LINE, ( Reported) Pazopanib HCl 200 Mg Tablet, PO UD, (Reported) TAKES 4 (200MG) TABLETS DAILY X 3 WEEKS THEN OFF 1 WEEK THEN REPEAT Patient Home Medication List Home Medication List Reviewed: Yes Past Odcleqs-Ngjsup-Omwqlc Hx Patient Social History Alcohol Use: Past History Recreational Drug Use: No Smoking Status: Current Everyday Smoker Type Used: Cigarettes Recent Foreign Travel: No Contact w/Someone Who Travel: No Recent Infectious Disease Expo: No Recent Hopitalizations: No Physical Abuse: No Sexual Abuse: No Mistreated: No Fear: No Immunizations Up To Date Date of Influenza Vaccine: Apr 27, 2012 Seasonal Allergies Seasonal Allergies: No Past Medical History Surgeries: Yes Breast, Gallbladder, Nephrectomy Respiratory: Yes (BILATERAL LUNG CANCER==SUSPECT METASTATIC DISEASE) Cardiac: Yes Hypertension Neurological: No Reproductive Disorders: No 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 Genitourinary: Yes (S/P LEFT NEPHRECTOMY FOR CANCER 10/2017) Gastrointestinal: Yes Gastroesophageal Reflux Musculoskeletal: No Endocrine: No HEENT: No Cancer: Yes (LEFT BREAST-DX 03/2017; LEFT RENAL W/ METS TO BILATERAL LUNGS- DX 10/2017) Brain, Lung, Breast, Kidney Did You Recieve Any Treatments: Yes What Type of Treatment Did You: Chemotherapy, Radiation, Surgical Intervention Psychosocial: No Nursing Suicide Risk Score: 0 Integumentary: No Blood Disorders: No Family Medical History Diabetes mellitus G8 BROTHER FH: brain cancer BROTHER FH: kidney cancer G8 SISTER BROTHER FH: lung cancer G8 BROTHER Kidney disease 19 MOTHER Myocardial infarction 19 FATHER Review of Systems-General Constitutional: see HPI, weakness EENTM: no symptoms reported Respiratory: no symptoms reported Cardiovascular: no symptoms reported Gastrointestinal: no symptoms reported Genitourinary: no symptoms reported Musculoskeletal: muscle pain, muscle weakness Skin: no symptoms reported Psychiatric/Neurological: See HPI, Seizure Physical Exam-General Problems Physical Exam Vital Signs Vital Signs - First Documented 02/01/18 04:05 Temp 99.2 Pulse 108 Resp 16 B/P (MAP) 107/80 (89) Pulse Ox 94 O2 Delivery Room Air Capillary Refill : Less Than 3 Seconds General Appearance: no apparent distress, cachetic Eyes: Bilateral Eye Normal Inspection, Bilateral Eye PERRL, Bilateral Eye EOMI HEENT: PERRL/EOMI, normal ENT inspection, pharynx normal Neck: non-tender, full range of motion, supple, normal inspection Respiratory: chest non-tender, lungs clear, normal breath sounds, no respiratory distress, no accessory muscle use Cardiovascular: normal peripheral pulses, regular rate, rhythm, no edema, no murmur Gastrointestinal: normal bowel sounds, non tender, soft, no organomegaly, no pulsatile mass Back: normal inspection Extremities: normal range of motion, normal inspection, no pedal edema Neurologic/Psychiatric: intake manager II-XII nml as tested, no motor/sensory deficits, alert, normal mood/affect, oriented x 3; No motor weakness, No sensory deficit Skin: normal color, warm/dry Lymphatic: no adenopathy Assessment/Plan Assessment/Plan Admission Diagnosis/Plan 57 yo female with multiple malignancies admitted with possibly complex partial seizure secondary to metastatic tumors and vasogenic edema. Given her metastatic history, brain metastases are most likely RCC in origin. She is being treated with dexamethasone 4mg IV q6h and levetiracetam 500mg q12h and has had no additional episodes. As long as she remains event-free on these medications for the next 24 hours, she will probably not have another seizure on the short term. I recommend that she continue these same doses in PO form on discharge, and we will taper her doses on an outpatient basis. Patient will be seen by radiation oncology this afternoon to begin the process for radiation treatment planning for the brain lesions. I will work on changing her systemic therapy from antiangiogenic TKI to immunotherapy with nivolumab or combined ipilimumab and nivolumab. We will need restaging CT chest , abdomen and pelvis, and brain MRI prior to starting treatment. Thank you for allowing me to participate in the care of Ms. Lewis. Clinical Quality Measures DVT/VTE Risk/Contraindication: Risk Factor Score Per Nursin RFS Level Per Nursing on Admit: 3=High TAMIR FATIMA MD Feb 01, 2018 10:16
[2018-02-01] MEDS ORDERED: LETR2.5T5 PO (11:00)
[2018-02-01] MEDS ORDERED: LORA0.5T PO (11:03)
[2018-02-01] MEDS ORDERED: PAZO200T PO (11:03)
[2018-02-01] MEDS ORDERED: ONDA8TAB12 PO (11:03)
[2018-02-01] MEDS ORDERED: ACET-2267 PO (11:04)
[2018-02-01] MEDS ORDERED: OMG1KC PO (11:05)
[2018-02-01] MEDS: DEXAMETHASONE 4 MG/ML SDV (DECADRON) IV SCH ×2 (11:54→17:06)
--- NOTE | 2018-02-01 12:15 | History & Physical-Hospitalist ---
History of Present Illness HPI/Chief Complaint CC: Seizure HPI: This is a 57-year-old white female with known history of breast, lung, renal cancer that has known metastasis to the brain who presented to the ER at 3 o'clock this morning due to new onset seizure. Her bed partner boyfriend noted that this episode called the ambulance brought her to the ER found to have widespread brain metastasis so she was consulting oncology and patient required admission to the hospitalist service for further evaluation and medication management. I did speak with Dr. Be oncology who has consulted Dr. Byrne for radiation oncology for radiation treatment to the brain and patient will be placed on steroids per protocol and seizure medications and likely will be able to be discharged tomorrow area I did note her full CODE STATUS will need to fully evaluate that with her advanced directives since this is a terminally ill patient that all treatment will be palliative only and will need to have arrangements made prior to her critical situation. Source: patient, RN/MD Exam Limitations: no limitations Date Seen 02/01/18 Time Seen by Provider: 11:45 Attending Physician Mehreen Srinivasan DO PCP Tom Martin MD Referring Physician Date of Admission Feb 01, 2018 at 05:35 Home Medications & Allergies Home Medications Reviewed patient Home Medication Reconciliation performed by pharmacy medication reconciliations fish and wildlife technician and/or nursing. Patients Allergies have been reviewed. Allergies Allergies Coded Allergies temsirolimus (Verified Allergy, Severe, RASH, 11/28/17) Past Xldrlgw-Jqskxx-Krtlnu Hx Past Med/Social Hx: Reviewed Nursing Past Med/Soc Hx, Reviewed and Corrections made Patient Social History Marrital Status: cohabiting Employed/Student: unemployed Alcohol Use: Past History Recreational Drug Use: No Smoking Status: Current Everyday Smoker Type Used: Cigarettes Physical Abuse Screen: No Sexual Abuse: No Recent Foreign Travel: No Contact w/other who traveled: No Recent Hopitalizations: No Recent Infectious Disease Expo: No Immunizations Up To Date Date of Influenza Vaccine: Apr 27, 2012 Seasonal Allergies Seasonal Allergies: No Past Medical History Surgeries: Breast, Gallbladder, Nephrectomy Cardiac: Hypertension Reproductive: No Menopausal Gastrointestinal: Gastroesophageal Reflux Cancer: Brain, Lung, Breast, Kidney Did You Recieve Any Treatments: Yes What Type of Treatment Did You: Chemotherapy, Radiation, Surgical Intervention History of Blood Disorders: No Family History Diabetes mellitus G8 BROTHER FH: brain cancer BROTHER FH: kidney cancer G8 SISTER BROTHER FH: lung cancer G8 BROTHER Kidney disease 19 MOTHER Myocardial infarction 19 FATHER Review of Systems Constitutional: see HPI, dizziness, weakness EENTM: no symptoms reported Respiratory: no symptoms reported Cardiovascular: no symptoms reported Gastrointestinal: no symptoms reported Genitourinary: no symptoms reported Musculoskeletal: no symptoms reported Skin: no symptoms reported Psychiatric/Neurological: Depressed, Seizure All Other Systems Reviewed Negative Unless Noted: Yes Physical Exam Physical Exam Vital Signs Vital Signs - First Documented 02/01/18 04:05 Temp 99.2 Pulse 108 Resp 16 B/P (MAP) 107/80 (89) Pulse Ox 94 O2 Delivery Room Air Capillary Refill : Less Than 3 Seconds General Appearance: No Apparent Distress, WD/WN, Chronically ill, Cachetic Eyes: Bilateral Eye Normal Inspection, Bilateral Eye PERRL HEENT: PERRL/EOMI, Normal ENT Inspection, Pharynx Normal Neck: Full Range of Motion, Normal Inspection, Non Tender, Supple, Carotid Bruit Respiratory: Chest Non Tender, Lungs Clear, Normal Breath Sounds, No Accessory Muscle Use, No Respiratory Distress Cardiovascular: Regular Rate, Rhythm, No Edema, No Gallop, No JVD, No Murmur, Normal Peripheral Pulses Gastrointestinal: Normal Bowel Sounds, No Organomegaly, No Pulsatile Mass, Non Tender, Soft Back: Normal Inspection, No CVA Tenderness, No Vertebral Tenderness Extremity: Normal Capillary Refill, Normal Inspection, Normal Range of Motion, Non Tender, No Calf Tenderness, No Pedal Edema Neurologic/Psychiatric: Alert, Oriented x3, No Motor/Sensory Deficits, Normal Mood/Affect Skin: Normal Color, Warm/Dry Lymphatic: No Adenopathy Results Results/Procedures Labs Laboratory Tests 02/01/18 04:08 Patient resulted labs reviewed. Assessment/Plan Admission Diagnosis New onset seizure with brain mets Admission Status: Inpatient Order (span 2 midnights) Reason for Inpatient Admission: Seizure will require hospital stay along with IV steroids and seizure meds Assessment and Plan Plan: Dr Byrne consultation for radiation treatment to shrink brain mets Seizure meds Steroids per Oncology Needs DNR Diagnosis/Problems Diagnosis/Problems (1) Seizure Status: Acute (2) Brain metastases Status: Acute (3) Lung cancer Status: Chronic Qualifiers: Laterality: unspecified laterality Lung location: unspecified part of lung Qualified Codes: C34.90 - Malignant neoplasm of unspecified part of unspecified bronchus or lung (4) Breast CA Status: Chronic Qualifiers: Breast location: unspecified site of breast Estrogen receptor status: unspecified Patient sex: female Laterality: unspecified laterality Qualified Codes: C50.919 - Malignant neoplasm of unspecified site of unspecified female breast (5) Renal cancer Status: Resolved Qualifiers: Laterality: unspecified laterality Qualified Codes: C64.9 - Malignant neoplasm of unspecified kidney, except renal pelvis (6) History of nephrectomy Status: Chronic (7) Smoker Status: Acute (8) Cachexia Status: Acute Clinical Quality Measures DVT/VTE Risk/Contraindication: Risk Factor Score Per Nursin RFS Level Per Nursing on Admit: 3=High MEHREEN SRINIVASAN DO Feb 01, 2018 12:15
[2018-02-01 12:30] VITALS: BP 119/69
[2018-02-01 16:17] VITALS: BP 141/78
[2018-02-01] MEDS: D5W IV SCH ×2 (17:07)
[2018-02-01] MEDS: LEVETIRACETAM IV SCH ×2 (17:07)
--- NOTE | 2018-02-01 17:45 | Consultation ---
History of Present Illness History of Present Illness Patient Consulted On(harrison/time) 02/01/18 17:45 Date Seen by Provider: Feb 01, 2018 Time Seen by Provider: 17:45 Reason for Visit: Brain metastasis History of Present Illness *57 y/o white female who was diagnosed synchronously with breast cancer, lung cancer and metastatic renal cell cancer in May 2017. *She had received lung SBRT at [place] (10/24/17) along with undergoing a left nephrectomy (10/29/17) at . She is currently being treated with letrozole and pazopanib. *She presented to [facility] ED early this a.m. via EMS with possible seizure activity which lasted about 20 minutes. *CT head wo: Multifocal areas of vasogenic edema are present which are likely due to metastatic disease. There is no hemorrhage or subdural or epidural collection. *CXR: Multiple pulmonary nodules bilaterally. *inbound call center representative medical oncologist, Dr. Signh, was contacted. Recommended initiation of decadron and keppra, admit to hospitalist and primary med onc Dr. Fatima along with a rad onc consult. *A radiation oncology consult was requested for evaluation and consideration of palliative brain xrt; thus my visit with the patient today. Allergies and Home Medications Allergies Coded Allergies: temsirolimus (Verified Allergy, Severe, RASH, 11/28/17) Home Medications Acetaminophen 500 Mg Tablet, 500 MG PO Q4H PRN for PAIN-MILD, (Reported) Letrozole 2.5 Mg Tablet, 2.5 MG PO DAILY, (Reported) Lisinopril 20 Mg Tablet, 20 MG PO HS, (Reported) Lorazepam 0.5 Mg Tablet, 0.5 MG PO BID PRN for ANXIETY, (Reported) [place] 3 Polyunsat Fatty Acids 1,000 Mg Cap, 1,000 MG PO DAILY, (Reported) Ondansetron HCl 8 Mg Tablet, 8 MG PO TID PRN for NAUSEA/VOMITING-1ST LINE, ( Reported) Pazopanib HCl 200 Mg Tablet, PO UD, (Reported) TAKES 4 (200MG) TABLETS DAILY X 3 WEEKS THEN OFF 1 WEEK THEN REPEAT Patient Home Medication List Home Medication List Reviewed: Yes Past Hjewzwo-Vuwycr-Ezumwk Hx Past Med/Social Hx: Reviewed Nursing Past Med/Soc Hx, Reviewed and Corrections made Patient Social History Alcohol Use: Past History Recreational Drug Use: No Smoking Status: Current Everyday Smoker Type Used: Cigarettes Recent Foreign Travel: No Contact w/Someone Who Travel: No Recent Infectious Disease Expo: No Recent Hopitalizations: No Physical Abuse: No Sexual Abuse: No Mistreated: No Fear: No Immunizations Up To Date Date of Influenza Vaccine: Apr 27, 2012 Seasonal Allergies Seasonal Allergies: No Past Medical History Surgeries: Yes Breast, Gallbladder, Nephrectomy Respiratory: Yes (BILATERAL LUNG CANCER==SUSPECT METASTATIC DISEASE) Cardiac: Yes Hypertension Neurological: No Reproductive Disorders: No 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 Genitourinary: Yes (S/P LEFT NEPHRECTOMY FOR CANCER 10/2017) Gastrointestinal: Yes Gastroesophageal Reflux Musculoskeletal: No Endocrine: No HEENT: No Cancer: Yes (LEFT BREAST-DX 03/2017; LEFT RENAL W/ METS TO BILATERAL LUNGS- DX 10/2017) Brain, Lung, Breast, Kidney Did You Recieve Any Treatments: Yes What Type of Treatment Did You: Chemotherapy, Radiation, Surgical Intervention Psychosocial: No Nursing Suicide Risk Score: 0 Integumentary: No Blood Disorders: No Family Medical History Diabetes mellitus G8 BROTHER FH: brain cancer BROTHER FH: kidney cancer G8 SISTER BROTHER FH: lung cancer G8 BROTHER Kidney disease 19 MOTHER Myocardial infarction 19 FATHER Review of Systems-General Constitutional: weakness EENTM: no symptoms reported Cardiovascular: no symptoms reported Gastrointestinal: no symptoms reported Genitourinary: no symptoms reported : No Musculoskeletal: muscle pain, muscle weakness Skin: no symptoms reported Psychiatric/Neurological: Seizure (presented to ED with symptoms) Physical Exam-General Problems Physical Exam Vital Signs Vital Signs - First Documented 02/01/18 04:05 Temp 99.2 Pulse 108 Resp 16 B/P (MAP) 107/80 (89) Pulse Ox 94 O2 Delivery Room Air Capillary Refill : Less Than 3 Seconds General Appearance: no apparent distress, cachetic Eyes: Bilateral Eye PERRL, Bilateral Eye EOMI HEENT: other (has a quarter size subcutaneous nodule on the dome of scalp that has eroded thru the skin scabbed over) Neck: full range of motion Respiratory: no respiratory distress Extremities: normal range of motion Neurologic/Psychiatric: alert, normal mood/affect, oriented x 3, motor weakness (none), sensory deficit (none) Skin: normal color Assessment/Plan Assessment/Plan Admission Diagnosis/Plan *57 y/o white female admitted for seizure like activity. *CT head identified multifocal vasogenic edema. *Initiated on Keppra and Decadron. *Symptoms improved. Feels much better ready to go home. To remain on both meds. *Has subcutaneous nodule on dome of scalp - has been biopsied at an [facility] (per patient) will obtain pathology results *Needs palliative whole brain xrt. *Patient to be discharged tomorrow if remains event-free. Will be sent home on PO decadron and Keppra. *Discussed a two week course of palliative whole brain xrt. We would attempt to deliver 30 Gy / 10 fxs. *The acute toxicities, nurses superintendent complications, logistics and hoped for benefit of treatment were reviewed. *The patient stated understanding the information presented to her. All questions answered to her satisfaction. *She did wish to proceed. *As the CT scan was done wo contrast, I would like an MRI of the brain done prior to initiating xrt for further evaluation of the presumed metastatic lesions. *She was given a treatment planning ct simulation date/time of 02/04 at 10:00 a.m. *We will initiate her course of palliative whole brain xrt once MRI has been reviewed with confirmation of metastatic lesions. Reason for Inpatient Admission: New onset seizure like activity Clinical Quality Measures DVT/VTE Risk/Contraindication: Risk Factor Score Per Nursin RFS Level Per Nursing on Admit: 3=High Copy Copies To 1: TAMIR FATIMA MD, DUANE E MD Feb 01, 2018 17:45
[2018-02-02] VITALS: BP 119/62
[2018-02-02] MEDS: DEXAMETHASONE 4 MG/ML SDV (DECADRON) IV SCH ×3 (00:08→10:53)
[2018-02-02] MEDS: 1/2 NS IV SOLUTION 1,000 ML IV SCH (03:45)
[2018-02-02 04:00] VITALS: BP 109/63
[2018-02-02] MEDS: D5W IV SCH ×2 (05:38)
[2018-02-02] MEDS: LEVETIRACETAM IV SCH ×2 (05:38)
[2018-02-02 06:49] LABS: BASOPHILS % (AUTO) 0 % (0-10); EOSINOPHILS % (AUTO) 0 % (0-10); HEMATOCRIT 30 % (35-52); LYMPHOCYTES # (AUTO) 1.2 X 10^3 (1.0-4.0); LYMPHOCYTES % (AUTO) 18 % (12-44); MEAN CORPUSCULAR HEMOGLOBIN 24 PG (25-34); MEAN CORPUSCULAR HGB CONC 31 G/DL (32-36); MEAN CORPUSCULAR VOLUME 78 FL (80-99); MEAN PLATELET VOLUME 9.3 FL (7.4-10.4); MONOCYTES # (AUTO) 0.3 X 10^3 (0.0-1.0); MONOCYTES % (AUTO) 5 % (0-12); NEUTROPHILS # (AUTO) 5.3 X 10^3 (1.8-7.8); NEUTROPHILS % (AUTO) 78 % (42-75); PLATELET COUNT 379 10^3/uL (130-400); RED CELL DISTRIBUTION WIDTH 22.7 % (10.0-14.5); WHITE BLOOD COUNT 6.8 10^3/uL (4.3-11.0)
[2018-02-02 07:15] LABS: ALANINE AMINOTRANSFERASE 21 U/L (0-55); ALBUMIN 2.7 GM/DL (3.2-4.5); ALKALINE PHOSPHATASE 141 U/L (40-136); BILIRUBIN,TOTAL 0.2 MG/DL (0.1-1.0); BUN/CREATININE RATIO 21; CALCIUM 9.1 MG/DL (8.5-10.1); CARBON DIOXIDE 19 MMOL/L (21-32); CHLORIDE 104 MMOL/L (98-107); CREATININE SERUM 0.68 MG/DL (0.60-1.30); GFR ESTIMATED > 60; GLUCOSE 141 MG/DL (70-105); MAGNESIUM 1.6 MG/DL (1.8-2.4); POTASSIUM 4.4 MMOL/L (3.6-5.0); SODIUM 134 MMOL/L (135-145); TOTAL PROTEIN 6.1 GM/DL (6.4-8.2)
[2018-02-02 08:00] VITALS: BP 109/57
[2018-02-02] MEDS ORDERED: DEXA4TAB66 PO (10:12)
[2018-02-02] MEDS ORDERED: LEVE500T99 PO (10:12)
--- NOTE | 2018-02-02 10:24 | Discharge Summary-Hospitalist ---
Diagnosis/Chief Complaint Date of Admission Feb 01, 2018 at 05:35 Date of Discharge February 02, 2018 Discharge Date: Feb 02, 2018 Discharge Time: 10:30 Admission Diagnosis New onset seizure with brain mets Discharge Diagnosis New onset seizures secondary to metastatic cancer of the kidney to the lung and to the brain Renal cell carcinoma Cancer the breast History of hypertension (1) Seizure Status: Acute (2) Brain metastases Status: Acute (3) Lung cancer Status: Chronic (4) Breast CA Status: Chronic (5) Renal cancer Status: Resolved (6) History of nephrectomy Status: Chronic (7) Smoker Status: Acute (8) Cachexia Status: Acute Discharge Summary Procedures/Consulations Dr. Haile Bowles Discharge Physical Exam Allergies: Coded Allergies: temsirolimus (Verified Allergy, Severe, RASH, 11/28/17) Vitals & I&Os Vital Signs Date Time Temp Pulse Resp B/P (MAP) Pulse Ox O2 Delivery O2 Flow Rate FiO2 02/02/18 08:00 98.6 77 16 109/57 (74) 97 Room Air General Appearance: Alert, Oriented X3, Cooperative, No Acute Distress HEENT: Atraumatic Respiratory: Clear to Auscultation Cardiovascular: Regular Rate, Normal S1, Normal S2 Abdominal: Normal Bowel Sounds, Soft Extremities: No Clubbing, No Cyanosis Skin: No Rashes, No Breakdown Neuro: Normal Gait, Normal Speech, Strength at 5/5 X4 Ext Psych/Mental Status: Mental Status NL Hospital Course The patient was admitted and placed on IV Decadron and IV Keppra. SHe has had no further recurrence of her seizures and has been seen in consultation by Dr. Moreira and Dr. Bowles. The patient would like to go home and an outpatient MRI of the brain and restaging with CT chest abdomen help pelvis will be done. The patient will be discharged on Decadron 4 mg every 6 hours with a taper to be initiated in follow-up as an outpatient. In addition she'll be discharged on Keppra 500 mg twice a day. The patient has been instructed not to drive. She has been instructed in her medications and to follow-up with Dr. Fatima and Dr. Bowles on Sunday of next week. They had both instructed her when to follow-up. At the time of discharge the patient is stable and is discharged in the care of her significant other. Labs (last 24 hrs) Laboratory Tests 02/02/18 05:45: White Blood Count 6.8, Red Blood Count 3.80L, Hemoglobin 9.0L, Hematocrit 30L, Mean Corpuscular Volume 78L, Mean Corpuscular Hemoglobin 24L, Mean Corpuscular Hemoglobin Concent 31L, Red Cell Distribution Width 22.7H, Platelet Count 379, Mean Platelet Volume 9.3, Neutrophils (%) (Auto) 78H, Lymphocytes (%) (Auto) 18 , Monocytes (%) (Auto) 5, Eosinophils (%) (Auto) 0, Basophils (%) (Auto) 0, Neutrophils # (Auto) 5.3, Lymphocytes # (Auto) 1.2, Monocytes # (Auto) 0.3, Eosinophils # (Auto) 0.0, Basophils # (Auto) 0.0, Sodium Level 134L, Potassium Level 4.4, Chloride Level 104, Carbon Dioxide Level 19L, Anion Gap 11, Blood Urea Nitrogen 14, Creatinine 0.68, Estimat Glomerular Filtration Rate > 60, BUN/ Creatinine Ratio 21, Glucose Level 141H, Calcium Level 9.1, Magnesium Level 1.6L , Total Bilirubin 0.2, Aspartate Amino Transf (AST/SGOT) 18, Alanine Aminotransferase (ALT/SGPT) 21, Alkaline Phosphatase 141H, Total Protein 6.1L, Albumin 2.7L Patient resulted labs reviewed. Pending Labs Laboratory Tests 02/02/18 05:45: White Blood Count 6.8, Red Blood Count 3.80, Hemoglobin 9.0, Hematocrit 30, Mean Corpuscular Volume 78, Mean Corpuscular Hemoglobin 24, Mean Corpuscular Hemoglobin Concent 31, Red Cell Distribution Width 22.7, Platelet Count 379, Mean Platelet Volume 9.3, Neutrophils (%) (Auto) 78, Lymphocytes (%) (Auto) 18, Monocytes (%) (Auto) 5, Eosinophils (%) (Auto) 0, Basophils (%) (Auto) 0, Neutrophils # (Auto) 5.3, Lymphocytes # (Auto) 1.2, Monocytes # (Auto) 0.3, Eosinophils # (Auto) 0.0, Basophils # (Auto) 0.0, Sodium Level 134, Potassium Level 4.4, Chloride Level 104, Carbon Dioxide Level 19, Anion Gap 11, Blood Urea Nitrogen 14, Creatinine 0.68, Estimat Glomerular Filtration Rate > 60, BUN/ Creatinine Ratio 21, Glucose Level 141, Calcium Level 9.1, Magnesium Level 1.6, Total Bilirubin 0.2, Aspartate Amino Transf (AST/SGOT) 18, Alanine Aminotransferase (ALT/SGPT) 21, Alkaline Phosphatase 141, Total Protein 6.1, Albumin 2.7 Discussion & Recommendations Discharge Planning: >30 minutes discharge planning Discharge Home Medications: Active Scripts Active Decadron (Dexamethasone) 4 Mg Tablet 4 Mg PO Q6H 7 Days Keppra (Levetiracetam) 500 Mg Tablet 500 Mg PO BID 30 Days Reported Tylenol Extra Strength (Acetaminophen) 500 Mg Tablet 500 Mg PO Q4H PRN Lorazepam 0.5 Mg Tablet 0.5 Mg PO BID PRN Ondansetron HCl 8 Mg Tablet 8 Mg PO TID PRN Letrozole 2.5 Mg Tablet 2.5 Mg PO DAILY Prinivil (Lisinopril) 20 Mg Tablet 20 Mg PO HS Condition at discharge Stable Instructions to patient/family Please see electronic discharge instructions given to patient. Clinical Quality Measures DVT/VTE Risk/Contraindication: Risk Factor Score Per Nursin RFS Level Per Nursing on Admit: 3=High Copy Copies To 1: TAMIR FATIMA MD Copies To 2: SAL BONILLA MD Problem Qualifiers (1) Lung cancer: Laterality: unspecified laterality Lung location: unspecified part of lung Qualified Codes: C34.90 - Malignant neoplasm of unspecified part of unspecified bronchus or lung (2) Breast CA: Breast location: unspecified site of breast Estrogen receptor status: unspecified Patient sex: female Laterality: unspecified laterality Qualified Codes: C50.919 - Malignant neoplasm of unspecified site of unspecified female breast (3) Renal cancer: Laterality: unspecified laterality Qualified Codes: C64.9 - Malignant neoplasm of unspecified kidney, except renal pelvis BRUCE WANG MD Feb 02, 2018 10:24
[2018-02-02] MEDS ORDERED: DEXAMETHASONE 4 MG TAB (DECADRON) ONE (10:55)
[2018-02-02 11:57] VITALS: BP 109/57
== END 2018-02-02 11:00 | disposition home or self-care (01) | DRG 54 ==
LOC: EDUNIT# 04:02 → ER 04:04 → 4TH 05:35
PROVIDERS: ADMIT Internal Medicine; ATTEND Internal Medicine
DX: C79.31 Secondary malignant neoplasm of brain (principal); G93.6 Cerebral edema; C78.01 Secondary malignant neoplasm of right lung; C78.02 Secondary malignant neoplasm of left lung; R64 Cachexia; R56.9 Unspecified convulsions; E83.42 Hypomagnesemia; D64.9 Anemia, unspecified; I10 Essential (primary) hypertension; K21.9 Gastro-esophageal reflux disease without esophagitis; Z85.528 Personal history of other malignant neoplasm of kidney; Z85.3 Personal history of malignant neoplasm of breast; F17.210 Nicotine dependence, cigarettes, uncomplicated; Z90.5 Acquired absence of kidney; Z92.3 Personal history of irradiation; Z92.21 Personal history of antineoplastic chemotherapy
CPT/HCPCS: 36415; 70450; 71045; 80053; 81000; 82550; 82553; 83735; 84443; 84484; 85025; 85610; 85730; 93005; 93041; 96374; 96375; 99214

== ENCOUNTER → 2018-02-05 | Outpatient (CLI) | payer OTHER ==
[~2018-02-05] MED LIST changes: +ACET-2267 PO; +DEXA4TAB66 PO; +GADOBUTROL 7.5 MMOL/7.5 ML (GADAVIST) VIAL IV ONE; +LETR2.5T5 PO; +LEVE500T99 PO; +LORA0.5T PO; +ONDA8TAB12 PO; +PAZO200T PO
--- NOTE | 2018-02-05 12:33 | Diagnostic Imaging Report ---
PROCEDURE: MR imaging of the brain with and without contrast. TECHNIQUE: Multiplanar, multisequence MR imaging of the brain was performed with and without contrast. INDICATION: History of renal and breast cancer. Recent seizure. COMPARISON: CT head without contrast 02/01/2018. FINDINGS: There are innumerable enhancing lesions scattered throughout both cerebral and cerebellar hemispheres. The largest lesions are in the left frontal lobe where there is a new ring-enhancing lesion measuring up to 0.8 cm and right parasagittal parietal lobe where there is solid enhancing mass measuring up to 0.7 cm. These larger regions are associated with confluent vasogenic edema. No midline shift. No hydrocephalus or extra-axial fluid collections. Normal intracranial flow voids. Normal morphology including the major midline structures, sella, posterior fossa and cerebellar pontine angle. Abnormal diffusion signal is due to T2 shine through. No evidence of acute or subacute infarct. There is small punctate region of susceptibility artifact in the right frontal lobe is not associated with one of the enhancing masses and may be due to prior microhemorrhage. Normal bone marrow signal. There is a mass in the scalp measuring approximately 2.6 x 2.3 cm near the vertex overlying the left frontal convexity. This is not included on the axial sequences. The adjacent calvarium demonstrates no abnormal signal or enhancement. IMPRESSION: 1. Innumerable enhancing masses scattered throughout both cerebral and cerebellar convexities strongly suspicious for metastatic disease. 2. No acute or subacute intracranial hemorrhage or infarction. No concerning mass effect. 3. Incompletely characterized mass in the scalp overlying the right frontal calvarium near the vertex. Underlying bone marrow signal is unremarkable. Dictated by: Dictated on workstation # [id number]
== END ==
LOC: RAD 02-04 08:43
PROVIDERS: ATTEND Radiology Radiation Oncology
DX: C79.31 Secondary malignant neoplasm of brain (principal); Z85.3 Personal history of malignant neoplasm of breast; Z85.528 Personal history of other malignant neoplasm of kidney
CPT/HCPCS: 70553

== ENCOUNTER → 2018-02-06 | Outpatient (CLI) | payer OTHER ==
[~2018-02-06] MED LIST changes: +BARIUM SUSPENSION 2.1% (VANILLA SILQ) 450 ML PO ONE; -GADOBUTROL 7.5 MMOL/7.5 ML (GADAVIST) VIAL IV ONE; +IOHEXOL 350 MG/ML 100 ML (OMNIPAQUE 350) VIAL IV ONE; +NS 250 ML (IVPB) BAG IV ONE
--- NOTE | 2018-02-06 12:57 | Diagnostic Imaging Report ---
PROCEDURE: CT chest with contrast, CT abdomen and pelvis with and without contrast. TECHNIQUE: Pre and post intravenous contrast axial imaging of the abdomen and pelvis and post contrast axial imaging of the chest were performed. INDICATION: Breast carcinoma as well as kidney carcinoma and [id number] lung carcinoma. COMPARISON: Comparison is made with prior CT from 11/21/2017. FINDINGS: CT chest: There is a 1 cm low-density nodule in the right lobe of the thyroid, appears similar to prior exam. No axillary lymphadenopathy is detected. Small lymph nodes are identified in the mediastinum but no definite pathologically enlarged mediastinal nodes are identified. No definite right hilar lymphadenopathy is seen. The left hilum is unremarkable. No pericardial fluid is seen. There is a trace left pleural effusion, new since prior exam. Pulmonary parenchymal evaluation demonstrates continued increase in size of numerous bilateral pulmonary masses. Left apical mass measures 2.0 cm compared with 1.5 cm on prior. A pleural-based mass in the right upper lobe laterally measures 2.6 cm compared with 1.0 cm. Right upper lobe mass at the level of the aortic arch measures 1.3 cm compared with 1.2 cm. Multiple additional nodules appear to be smaller. A spiculated mass in the superior segment of the right lower lobe now measures 1.6 cm transverse compared with 2.4 cm. A mass in the medial aspect of the right lower lobe measures 2.4 cm compared with 2.7 cm. Numerous additional smaller lesions are present. Several pulmonary masses have developed, some of central low density which may represent some central necrosis. Central low-density mass in the medial left lower lobe adjacent to the left pulmonary veins measures 2.8 cm transverse compared with 2.6 cm on prior. A medial low-density mass in the left lower lobe adjacent to the descending thoracic aorta measures 3.7 cm compared with 2.9 cm. IMPRESSION: Mixed response, as described. There are numerous pulmonary nodules which appear to be larger when compared with prior study. There are also numerous pulmonary nodules which appear to be smaller when compared with prior study of three months earlier. There is also trace left pleural effusion. No axillary, hilar, or mediastinal lymphadenopathy is detected. CT abdomen and pelvis: The liver does contain two low-density lesions in the right lobe, the largest is more posterior measuring 1.6 cm. This was not definitely seen on prior CT, however, prior CT did not use contrast. The gallbladder is surgically absent. The pancreas and spleen are unremarkable. No adrenal mass is detected. Left kidney appears to be surgically absent. Small and large bowel loops are normal in caliber. There is a cyst in the right adnexa, similar to prior exam, and may be ovarian. This measures 3.4 cm. The bladder is unremarkable. There is no ascites. Bony structures appear nonacute. IMPRESSION: Development of indeterminate low densities in the right lobe of the liver. Metastatic lesions cannot be entirely excluded. Continued close followup is recommended. No other significant abnormality in the abdomen or pelvis is detected. Dictated by: Dictated on workstation # [id number]
== END ==
LOC: RAD 10:40
PROVIDERS: ATTEND Internal Medicine Hematology & Oncology
DX: C34.90 Malignant neoplasm of unspecified part of unspecified bronchus or lung (principal); C64.9 Malignant neoplasm of unspecified kidney, except renal pelvis; C50.919 Malignant neoplasm of unspecified site of unspecified female breast
CPT/HCPCS: 71260; 74178

== ENCOUNTER → 2018-02-07 | Outpatient (RCR) | payer OTHER ==
[2017-11-21 09:59] LABS: BASOPHILS % (AUTO) 0 % (0-10); EOSINOPHILS # (AUTO) 0.1 10^3/uL (0.0-0.3); EOSINOPHILS % (AUTO) 1 % (0-10); HEMATOCRIT 33 % (35-52); HEMOGLOBIN 10.1 G/DL (11.5-16.0); LYMPHOCYTES % (AUTO) 24 % (12-44); MEAN CORPUSCULAR HEMOGLOBIN 24 PG (25-34); MEAN CORPUSCULAR HGB CONC 31 G/DL (32-36); MEAN CORPUSCULAR VOLUME 77 FL (80-99); MEAN PLATELET VOLUME 9.1 FL (7.4-10.4); MONOCYTES # (AUTO) 0.8 X 10^3 (0.0-1.0); MONOCYTES % (AUTO) 9 % (0-12); NEUTROPHILS # (AUTO) 5.3 X 10^3 (1.8-7.8); NEUTROPHILS % (AUTO) 65 % (42-75); PLATELET COUNT 571 10^3/uL (130-400); RED BLOOD COUNT 4.24 10^6/uL (4.35-5.85); RED CELL DISTRIBUTION WIDTH 18.5 % (10.0-14.5); WHITE BLOOD COUNT 8.2 10^3/uL (4.3-11.0)
[2017-11-21 10:23] LABS: ALANINE AMINOTRANSFERASE 30 U/L (0-55); ALBUMIN 3.3 GM/DL (3.2-4.5); ALKALINE PHOSPHATASE 457 U/L (40-136); BILIRUBIN,TOTAL 0.5 MG/DL (0.1-1.0); BUN/CREATININE RATIO 15; CALCIUM 10.5 MG/DL (8.5-10.1); CARBON DIOXIDE 27 MMOL/L (21-32); CHLORIDE 97 MMOL/L (98-107); GFR ESTIMATED > 60; GLUCOSE 110 MG/DL (70-105); POTASSIUM 4.3 MMOL/L (3.6-5.0); SODIUM 133 MMOL/L (135-145); TOTAL PROTEIN 7.6 GM/DL (6.4-8.2)
[2017-11-28 09:27] LABS: HEMATOCRIT 34 % (35-52); HEMOGLOBIN 10.2 G/DL (11.5-16.0); MEAN CORPUSCULAR HEMOGLOBIN 23 PG (25-34); MEAN CORPUSCULAR HGB CONC 30 G/DL (32-36); MEAN CORPUSCULAR VOLUME 77 FL (80-99); MEAN PLATELET VOLUME 11.2 FL (7.4-10.4); PLATELET COUNT 379 10^3/uL (130-400); RED BLOOD COUNT 4.37 10^6/uL (4.35-5.85); RED CELL DISTRIBUTION WIDTH 18.5 % (10.0-14.5); WHITE BLOOD COUNT 4.3 10^3/uL (4.3-11.0)
[2017-11-28 09:30] LABS: BUN/CREATININE RATIO 13; CALCIUM 10.2 MG/DL (8.5-10.1); CARBON DIOXIDE 24 MMOL/L (21-32); CHLORIDE 99 MMOL/L (98-107); CREATININE SERUM 0.77 MG/DL (0.60-1.30); GFR ESTIMATED > 60; GLUCOSE 98 MG/DL (70-105); POTASSIUM 5.4 MMOL/L (3.6-5.0); SODIUM 133 MMOL/L (135-145)
[2017-11-28 10:03] LABS: ANISOCYTOSIS SLIGHT; BAND NEUTROPHILS 3 %; BASOPHILS % (MANUAL) 1 %; EOSINOPHILS % (MANUAL) 0 %; HYPOCHROMASIA SLIGHT; LYMPHOCYTES % (MANUAL) 39 %; MICROCYTOSIS SLIGHT; MONOCYTES % (MANUAL) 7 %; NEUTROPHILS % (MANUAL) 50 %
[2017-12-05 16:05] LABS: BASOPHILS % (AUTO) 0 % (0-10); EOSINOPHILS # (AUTO) 0.1 10^3/uL (0.0-0.3); EOSINOPHILS % (AUTO) 1 % (0-10); HEMATOCRIT 29 % (35-52); HEMOGLOBIN 8.9 G/DL (11.5-16.0); LYMPHOCYTES # (AUTO) 2.1 X 10^3 (1.0-4.0); LYMPHOCYTES % (AUTO) 34 % (12-44); MEAN CORPUSCULAR HEMOGLOBIN 23 PG (25-34); MEAN CORPUSCULAR HGB CONC 31 G/DL (32-36); MEAN CORPUSCULAR VOLUME 76 FL (80-99); MEAN PLATELET VOLUME 8.7 FL (7.4-10.4); MONOCYTES # (AUTO) 0.9 X 10^3 (0.0-1.0); MONOCYTES % (AUTO) 15 % (0-12); NEUTROPHILS % (AUTO) 50 % (42-75); PLATELET COUNT 542 10^3/uL (130-400); RED BLOOD COUNT 3.83 10^6/uL (4.35-5.85); RED CELL DISTRIBUTION WIDTH 18.8 % (10.0-14.5); WHITE BLOOD COUNT 6.1 10^3/uL (4.3-11.0)
[2017-12-05 16:25] LABS: ALANINE AMINOTRANSFERASE 11 U/L (0-55); ALBUMIN 3.2 GM/DL (3.2-4.5); ALKALINE PHOSPHATASE 255 U/L (40-136); BILIRUBIN,TOTAL 0.2 MG/DL (0.1-1.0); BUN/CREATININE RATIO 13; CALCIUM 9.5 MG/DL (8.5-10.1); CARBON DIOXIDE 21 MMOL/L (21-32); CHLORIDE 101 MMOL/L (98-107); CREATININE SERUM 0.94 MG/DL (0.60-1.30); GFR ESTIMATED > 60; GLUCOSE 152 MG/DL (70-105); POTASSIUM 4.7 MMOL/L (3.6-5.0); SODIUM 135 MMOL/L (135-145); TOTAL PROTEIN 7.1 GM/DL (6.4-8.2)
[2017-12-20 11:16] LABS: ABSOLUTE RETIC # 55 10e9/L (24-90); BASOPHILS % (AUTO) 0 % (0-10); EOSINOPHILS # (AUTO) 0.1 10^3/uL (0.0-0.3); EOSINOPHILS % (AUTO) 1 % (0-10); HEMATOCRIT 32 % (35-52); HEMOGLOBIN 9.4 G/DL (11.5-16.0); LYMPHOCYTES # (AUTO) 2.4 X 10^3 (1.0-4.0); LYMPHOCYTES % (AUTO) 34 % (12-44); MEAN CORPUSCULAR HEMOGLOBIN 22 PG (25-34); MEAN CORPUSCULAR HGB CONC 30 G/DL (32-36); MEAN CORPUSCULAR VOLUME 74 FL (80-99); MEAN PLATELET VOLUME 9.3 FL (7.4-10.4); MONOCYTES # (AUTO) 0.6 X 10^3 (0.0-1.0); MONOCYTES % (AUTO) 8 % (0-12); NEUTROPHILS % (AUTO) 57 % (42-75); PLATELET COUNT 744 10^3/uL (130-400); RED BLOOD COUNT 4.26 10^6/uL (4.35-5.85); RED CELL DISTRIBUTION WIDTH 19.1 % (10.0-14.5); RETICULOCYTE % 1.28 % (0.50-2.40)
[2017-12-20 11:43] LABS: ALANINE AMINOTRANSFERASE 32 U/L (0-55); ALBUMIN 3.2 GM/DL (3.2-4.5); ALKALINE PHOSPHATASE 407 U/L (40-136); BILIRUBIN,TOTAL 0.5 MG/DL (0.1-1.0); BUN/CREATININE RATIO 13; CALCIUM 10.2 MG/DL (8.5-10.1); CARBON DIOXIDE 27 MMOL/L (21-32); CHLORIDE 100 MMOL/L (98-107); CREATININE SERUM 0.78 MG/DL (0.60-1.30); GFR ESTIMATED > 60; GLUCOSE 95 MG/DL (70-105); POTASSIUM 5.1 MMOL/L (3.6-5.0); SODIUM 135 MMOL/L (135-145); TOTAL PROTEIN 8.2 GM/DL (6.4-8.2)
[2018-01-09 09:14] LABS: BASOPHILS % (AUTO) 0 % (0-10); EOSINOPHILS # (AUTO) 0.1 10^3/uL (0.0-0.3); EOSINOPHILS % (AUTO) 1 % (0-10); HEMATOCRIT 31 % (35-52); HEMOGLOBIN 9.5 G/DL (11.5-16.0); LYMPHOCYTES # (AUTO) 1.9 X 10^3 (1.0-4.0); LYMPHOCYTES % (AUTO) 32 % (12-44); MEAN CORPUSCULAR HEMOGLOBIN 24 PG (25-34); MEAN CORPUSCULAR HGB CONC 31 G/DL (32-36); MEAN CORPUSCULAR VOLUME 77 FL (80-99); MEAN PLATELET VOLUME 8.3 FL (7.4-10.4); MONOCYTES # (AUTO) 0.5 X 10^3 (0.0-1.0); MONOCYTES % (AUTO) 9 % (0-12); NEUTROPHILS # (AUTO) 3.3 X 10^3 (1.8-7.8); NEUTROPHILS % (AUTO) 57 % (42-75); PLATELET COUNT 501 10^3/uL (130-400); RED BLOOD COUNT 4.01 10^6/uL (4.35-5.85); RED CELL DISTRIBUTION WIDTH 23.8 % (10.0-14.5); WHITE BLOOD COUNT 5.8 10^3/uL (4.3-11.0)
[2018-01-09 09:38] LABS: ALANINE AMINOTRANSFERASE 18 U/L (0-55); ALBUMIN 2.9 GM/DL (3.2-4.5); ALKALINE PHOSPHATASE 220 U/L (40-136); BILIRUBIN,TOTAL 0.5 MG/DL (0.1-1.0); BUN/CREATININE RATIO 17; CALCIUM 9.7 MG/DL (8.5-10.1); CARBON DIOXIDE 19 MMOL/L (21-32); CHLORIDE 104 MMOL/L (98-107); CREATININE SERUM 0.82 MG/DL (0.60-1.30); GFR ESTIMATED > 60; GLUCOSE 145 MG/DL (70-105); POTASSIUM 4.8 MMOL/L (3.6-5.0); SODIUM 134 MMOL/L (135-145); TOTAL PROTEIN 6.7 GM/DL (6.4-8.2)
[~2018-02-07] VITALS: Ht 160 cm; Wt 55.3 kg
[~2018-02-07] MED LIST changes: -BARIUM SUSPENSION 2.1% (VANILLA SILQ) 450 ML PO ONE; -IOHEXOL 350 MG/ML 100 ML (OMNIPAQUE 350) VIAL IV ONE; -NS 250 ML (IVPB) BAG IV ONE; +NS IV 1000 ML (CANCER CTR) IV SCH; +NS IV 500 ML (CANCER CENTER) 500 ML ONE; +ONDANSETRON MDV (CANCER CENTER 16 MG, DEXAMETHASONE PF INJ (CANCER C 10 MG in NS (IVPB)... IV SCH; +TEMSIROLIMUS 25 MG in NORMAL SALINE (CANCER CENTER) 250 ML IV SCH; +diphenhydrAMINE 25 MG TAB (BENADRYL) CANCER CENTER PO SCH
[2018-02-08 13:25] LABS: BASOPHILS % (AUTO) 0 % (0-10); EOSINOPHILS % (AUTO) 0 % (0-10); HEMATOCRIT 31 % (35-52); HEMOGLOBIN 9.7 G/DL (11.5-16.0); LYMPHOCYTES # (AUTO) 2.3 X 10^3 (1.0-4.0); LYMPHOCYTES % (AUTO) 21 % (12-44); MEAN CORPUSCULAR HEMOGLOBIN 24 PG (25-34); MEAN CORPUSCULAR HGB CONC 32 G/DL (32-36); MEAN CORPUSCULAR VOLUME 77 FL (80-99); MEAN PLATELET VOLUME 8.7 FL (7.4-10.4); MONOCYTES # (AUTO) 1.5 X 10^3 (0.0-1.0); MONOCYTES % (AUTO) 13 % (0-12); NEUTROPHILS # (AUTO) 7.6 X 10^3 (1.8-7.8); NEUTROPHILS % (AUTO) 67 % (42-75); PLATELET COUNT 470 10^3/uL (130-400); WHITE BLOOD COUNT 11.3 10^3/uL (4.3-11.0)
[2018-02-08 13:50] LABS: ALANINE AMINOTRANSFERASE 52 U/L (0-55); ALBUMIN 2.9 GM/DL (3.2-4.5); ALKALINE PHOSPHATASE 138 U/L (40-136); BILIRUBIN,TOTAL 0.3 MG/DL (0.1-1.0); BUN/CREATININE RATIO 28; CALCIUM 9.6 MG/DL (8.5-10.1); CARBON DIOXIDE 23 MMOL/L (21-32); CHLORIDE 100 MMOL/L (98-107); CREATININE SERUM 0.75 MG/DL (0.60-1.30); GFR ESTIMATED > 60; GLUCOSE 125 MG/DL (70-105); POTASSIUM 4.3 MMOL/L (3.6-5.0); SODIUM 134 MMOL/L (135-145); TOTAL PROTEIN 6.6 GM/DL (6.4-8.2)
== END | disposition home or self-care (01) ==
LOC: ONC 11-09 10:04
PROVIDERS: ATTEND Internal Medicine Hematology & Oncology
DX: Z51.0 Encounter for antineoplastic radiation therapy (principal); Z51.11 Encounter for antineoplastic chemotherapy; C50.412 Malignant neoplasm of upper-outer quadrant of left female breast; C77.3 Secondary and unspecified malignant neoplasm of axilla and upper limb lymph nodes; C64.2 Malignant neoplasm of left kidney, except renal pelvis; C34.31 Malignant neoplasm of lower lobe, right bronchus or lung; C78.01 Secondary malignant neoplasm of right lung; D63.8 Anemia in other chronic diseases classified elsewhere; C78.02 Secondary malignant neoplasm of left lung; L98.9 Disorder of the skin and subcutaneous tissue, unspecified; E04.1 Nontoxic single thyroid nodule; N83.201 Unspecified ovarian cyst, right side; F17.210 Nicotine dependence, cigarettes, uncomplicated; Z17.0 Estrogen receptor positive status [ER+]; Z79.811 Long term (current) use of aromatase inhibitors; Z79.899 Other long term (current) drug therapy; Z90.5 Acquired absence of kidney
CPT/HCPCS: 36415; 77290; 77295; 77300; 77334; 77417; 80048; 80053; 82728; 83540; 85007; 85025; 85027; 85045; 96375; 96409; 96413; 99213

== ENCOUNTER 2018-03-01 10:54 | Outpatient (RCR) | payer OTHER ==
[2018-02-08 13:25] LABS: BASOPHILS % (AUTO) 0 % (0-10); EOSINOPHILS % (AUTO) 0 % (0-10); HEMATOCRIT 31 % (35-52); HEMOGLOBIN 9.7 G/DL (11.5-16.0); LYMPHOCYTES # (AUTO) 2.3 X 10^3 (1.0-4.0); LYMPHOCYTES % (AUTO) 21 % (12-44); MEAN CORPUSCULAR HEMOGLOBIN 24 PG (25-34); MEAN CORPUSCULAR HGB CONC 32 G/DL (32-36); MEAN CORPUSCULAR VOLUME 77 FL (80-99); MEAN PLATELET VOLUME 8.7 FL (7.4-10.4); MONOCYTES # (AUTO) 1.5 X 10^3 (0.0-1.0); MONOCYTES % (AUTO) 13 % (0-12); NEUTROPHILS # (AUTO) 7.6 X 10^3 (1.8-7.8); NEUTROPHILS % (AUTO) 67 % (42-75); PLATELET COUNT 470 10^3/uL (130-400); WHITE BLOOD COUNT 11.3 10^3/uL (4.3-11.0)
[2018-02-08 13:50] LABS: ALANINE AMINOTRANSFERASE 52 U/L (0-55); ALBUMIN 2.9 GM/DL (3.2-4.5); ALKALINE PHOSPHATASE 138 U/L (40-136); BILIRUBIN,TOTAL 0.3 MG/DL (0.1-1.0); BUN/CREATININE RATIO 28; CALCIUM 9.6 MG/DL (8.5-10.1); CARBON DIOXIDE 23 MMOL/L (21-32); CHLORIDE 100 MMOL/L (98-107); CREATININE SERUM 0.75 MG/DL (0.60-1.30); GFR ESTIMATED > 60; GLUCOSE 125 MG/DL (70-105); POTASSIUM 4.3 MMOL/L (3.6-5.0); SODIUM 134 MMOL/L (135-145); TOTAL PROTEIN 6.6 GM/DL (6.4-8.2)
[2018-02-21 11:07] LABS: BASOPHILS % (AUTO) 0 % (0-10); EOSINOPHILS % (AUTO) 0 % (0-10); HEMATOCRIT 24 % (35-52); HEMOGLOBIN 7.6 G/DL (11.5-16.0); LYMPHOCYTES # (AUTO) 1.9 X 10^3 (1.0-4.0); LYMPHOCYTES % (AUTO) 19 % (12-44); MEAN CORPUSCULAR HEMOGLOBIN 25 PG (25-34); MEAN CORPUSCULAR HGB CONC 31 G/DL (32-36); MEAN CORPUSCULAR VOLUME 79 FL (80-99); MEAN PLATELET VOLUME 9.1 FL (7.4-10.4); MONOCYTES # (AUTO) 0.4 X 10^3 (0.0-1.0); MONOCYTES % (AUTO) 4 % (0-12); NEUTROPHILS % (AUTO) 78 % (42-75); PLATELET COUNT 339 10^3/uL (130-400); RED BLOOD COUNT 3.08 10^6/uL (4.35-5.85); RED CELL DISTRIBUTION WIDTH 21.3 % (10.0-14.5); WHITE BLOOD COUNT 10.3 10^3/uL (4.3-11.0)
[2018-02-21 11:21] LABS: ALANINE AMINOTRANSFERASE 55 U/L (0-55); ALBUMIN 2.4 GM/DL (3.2-4.5); ALKALINE PHOSPHATASE 457 U/L (40-136); BILIRUBIN,TOTAL 1.2 MG/DL (0.1-1.0); BUN/CREATININE RATIO 28; CALCIUM 9.3 MG/DL (8.5-10.1); CARBON DIOXIDE 18 MMOL/L (21-32); CHLORIDE 103 MMOL/L (98-107); CREATININE SERUM 0.71 MG/DL (0.60-1.30); GFR ESTIMATED > 60; GLUCOSE 108 MG/DL (70-105); POTASSIUM 4.1 MMOL/L (3.6-5.0); SODIUM 132 MMOL/L (135-145); TOTAL PROTEIN 5.9 GM/DL (6.4-8.2)
[2018-02-21 12:03] LABS: CLARITY,URINE SLIGHTLY CLOUDY; COLOR,URINE AMBER; GLUCOSE, URINE (UA) NEGATIVE (NEGATIVE); KETONES,URINE NEGATIVE (NEGATIVE); LEUKOCYTE ESTERASE ,URINE 2+ (NEGATIVE); NITRITE,URINE NEGATIVE (NEGATIVE); PH,URINE 6 (5-9); PROTEIN,URINE 2+ (NEGATIVE); UROBILINOGEN,URINE 12 MG/DL (NORMAL)
[2018-02-21 12:15] LABS: BACTERIA,URINE MODERATE /HPF; BILIRUBIN,URINE 2+ (NEGATIVE)
--- NOTE | 2018-02-21 12:31 | Diagnostic Imaging Report ---
PROCEDURE: CT head with and without contrast. TECHNIQUE: Multiple contiguous axial images were obtained through the brain before and after the administration of intravenous contrast. INDICATION: Non-small cell lung carcinoma. Patient also has altered status. Correlation is made with the recent MRI of the brain from 02/05/2018. Ventricular size is stable. Numerous bilateral enhancing masses are again noted consistent with intracranial metastatic disease. There are confluent regions of low density involving bilateral cerebral hemispheres consistent with vasogenic edema. Areas of edema have increased somewhat when compared with the T2 and FLAIR sequences from MRI from 02/05/2018. Particular high right posterior parietal edema has increased. There continues to be a large amount of vasogenic edema in the left temporal lobe as well as left frontal and parietal-occipital lobes. There is no mass effect. There is no midline shift. No acute intra-axial or extra-axial hemorrhage is seen. Cisterns are patent. Visualized paranasal sinuses are clear. IMPRESSION: Findings consistent with intracranial metastatic disease, similar in appearance to the MRI from 02/05/2018. There may be slightly more vasogenic edema on the right, as described. There is no mass effect, hydrocephalus or evidence of acute intracranial hemorrhage. Dictated by: Dictated on workstation # [id number]
--- NOTE | 2018-02-21 13:20 | Diagnostic Imaging Report ---
INDICATION: Follow-up lung cancer with weakness COMPARISON: The exam compared with studies of 02/01/2018 as well as 10/04/2017. FINDINGS: Multiple bilateral pulmonary nodules showed progressive size and numbers from the previous exams consistent with progressive widespread multifocal pulmonary parenchymal involvement by metastatic disease. There were no findings felt suggestive of pneumonia or failure pattern superimposed. The heart size is stable. No free air beneath the diaphragms. IMPRESSION: Notable progressive widespread pulmonary parenchymal metastases when compared with previous exams including obvious progression from a study most recently performed 20 days earlier. Report given to nurse (Liudmila) at 01:19 p.m. 02/21/2018/eren Dictated by: Dictated on workstation # [id number]
[2018-02-25 14:46] LABS: INR 1.2 (0.8-1.4); PROTHROMBIN TIME PATIENT 15.5 SEC (12.2-14.7)
[~2018-03-01] VITALS: Ht 160 cm; Wt 49.9 kg
[~2018-03-01 10:54] MED LIST changes: +IOHEXOL 350 MG/ML 100 ML (OMNIPAQUE 350) VIAL IV ONE; +NS 250 ML (IVPB) BAG IV ONE; -NS IV 1000 ML (CANCER CTR) IV SCH; -NS IV 500 ML (CANCER CENTER) 500 ML ONE; -ONDANSETRON MDV (CANCER CENTER 16 MG, DEXAMETHASONE PF INJ (CANCER C 10 MG in NS (IVPB)... IV SCH; -TEMSIROLIMUS 25 MG in NORMAL SALINE (CANCER CENTER) 250 ML IV SCH; -diphenhydrAMINE 25 MG TAB (BENADRYL) CANCER CENTER PO SCH
[2018-03-01] MEDS ORDERED: NIVOLUMAB IV SCH (12:15)
[2018-03-01] MEDS ORDERED: NS IV SCH ×2 (12:15)
[2018-03-01] MEDS ORDERED: IPILIMUMAB IV SCH (12:15)
[2018-03-01] MEDS ORDERED: NS IV 500 ML (CANCER CENTER) IV SCH (12:30)
== END 2018-05-09 | disposition home or self-care (01) ==
LOC: ONC 10:54
PROVIDERS: ATTEND Internal Medicine Hematology & Oncology
DX: Z51.0 Encounter for antineoplastic radiation therapy (principal); C50.412 Malignant neoplasm of upper-outer quadrant of left female breast; C64.2 Malignant neoplasm of left kidney, except renal pelvis; C77.3 Secondary and unspecified malignant neoplasm of axilla and upper limb lymph nodes; C34.31 Malignant neoplasm of lower lobe, right bronchus or lung; C79.2 Secondary malignant neoplasm of skin; C79.31 Secondary malignant neoplasm of brain; C78.7 Secondary malignant neoplasm of liver and intrahepatic bile duct; C78.01 Secondary malignant neoplasm of right lung; C78.02 Secondary malignant neoplasm of left lung; N39.0 Urinary tract infection, site not specified; D63.8 Anemia in other chronic diseases classified elsewhere; E04.1 Nontoxic single thyroid nodule; F17.210 Nicotine dependence, cigarettes, uncomplicated; N83.201 Unspecified ovarian cyst, right side; Z17.0 Estrogen receptor positive status [ER+]; Z79.899 Other long term (current) drug therapy; Z79.811 Long term (current) use of aromatase inhibitors
CPT/HCPCS: 36415; 70470; 71046; 77290; 77300; 77332; 77334; 77336; 77417; 80053; 81000; 82140; 82607; 82746; 84466; 85025; 85610; 85730; 87088; 99213